=== PATIENT | female | born 1945 | race Caucasian/White ===

== ENCOUNTER 2016-04-05 20:40 | Emergency (ER) | payer MEDICARE, OTHER ==
[2016-04-05] MEDS ORDERED: IPRATROPIUM/ALBUTEROL 3 ML NEB INH STA (21:36)
[2016-04-05] MEDS ORDERED: DEXAMETHASONE 10 MG/ML VIAL PO STA (21:36)
[2016-04-05] MEDS ORDERED: cefTRIAXone 1 GM VIAL IM STA (21:36)
[2016-04-05] MEDS ORDERED: CHERRY SYRUP 10 ML UDC PO ONE (21:41)
[2016-04-05] MEDS ORDERED: cefTRIAXone 1 GM VIAL ONE (21:41)
[2016-04-05] MEDS ORDERED: DEXAMETHASONE 10 MG/ML VIAL ONE (21:41)
[2016-04-05] MEDS ORDERED: LIDOCAINE 2% 10 ML MDV ONE (21:42)
[2016-04-05] MEDS ORDERED: IPRATROPIUM/ALBUTEROL 3 ML NEB INH ONE (21:43)
[2016-04-05] MEDS ORDERED: ALBUTEROL 8 GM INHALER INH STA (23:51)
[2016-04-05] MEDS ORDERED: ALBUTEROL 8 GM INHALER INH ONE (23:52)
== END 2016-04-06 00:35 | disposition home or self-care (01) ==
DX: J01.90 Acute sinusitis, unspecified (principal); J45.909 Unspecified asthma, uncomplicated; I10 Essential (primary) hypertension; E11.9 Type 2 diabetes mellitus without complications; Z79.84 Long term (current) use of oral hypoglycemic drugs; Z79.82 Long term (current) use of aspirin
CPT/HCPCS: 71020; 87275; 87276; 94640; 94664; 96372; 99282; 99284; A9270; J7620

== ENCOUNTER 2016-06-09 03:00 | Outpatient (CLI) | payer MEDICARE | END 2016-06-09 03:01 | disposition critical access hospital (66) | DX: M54.2 Cervicalgia (principal) | CPT/HCPCS: A0425; A0429 ==

== ENCOUNTER 2016-06-09 03:19 | Emergency (ER) | payer MEDICARE ==
[2016-06-09] MEDS ORDERED: SODIUM CHLORIDE 0.9% 1,000 ML IV ONE (03:32)
[2016-06-09] MEDS ORDERED: diazePAM INJ 5 MG/ML SYRINGE IVP STA (04:05)
[2016-06-09] MEDS ORDERED: KETOROLAC 60 MG/2 ML VIAL IVP STA (04:05)
[2016-06-09] MEDS ORDERED: KETOROLAC 30 MG/ML VIAL ONE (04:08)
[2016-06-09] MEDS ORDERED: diazePAM INJ 5 MG/ML SYRINGE ONE (04:08)
== END 2016-06-09 04:56 | disposition home or self-care (01) ==
DX: M62.838 Other muscle spasm (principal); I10 Essential (primary) hypertension; E11.9 Type 2 diabetes mellitus without complications; Z79.84 Long term (current) use of oral hypoglycemic drugs

== ENCOUNTER 2022-05-26 12:55 | Emergency (ER) | payer MEDICARE ==
[2022-05-26 14:11] LABS: BASOPHILS % (AUTO) 0.5 %; EOSINOPHILS % (AUTO) 0.6 %; HCT - HEMATOCRIT 30.5 % (37.0-47.0); LYMPHOCYTES % (AUTO) 3.8 %; MEAN CORPUSCULAR HEMOGLOBIN 30.9 pg (27.0-31.0); MEAN CORPUSCULAR HGB CONC 32.8 g/dL (32.0-36.0); MEAN CORPUSCULAR VOLUME 94.1 fL (81.0-99.0); MONOCYTES % (AUTO) 8.7 %; NEUTROPHILS % (AUTO) 74.9 %; PLT - PLATELET COUNT 176 10^3/uL (130-450); RED BLOOD COUNT 3.24 10^6/uL (4.20-5.40); RED CELL DISTRIBUTION WIDTH 14.4 % (12.0-15.0); WHITE BLOOD COUNT 14.5 x10^3/uL (4.8-10.8)
[2022-05-26 14:17] LABS: ABNORMAL LYMPHS % (MANUAL) 0 %
[2022-05-26] MEDS ORDERED: ACETAMINOPHEN 500 MG TABLET PO STA (14:19)
[2022-05-26] MEDS ORDERED: SODIUM CHLORIDE 0.9% 1,000 ML IV STA (14:19)
--- NOTE | 2022-05-26 14:20 | ED Physician Documentation ---
History of Present Illness - Stated complaint Stated Complaint: CHILLS/FEVER - Chief complaint Chief Complaint: General - History obtained from History obtained from: Patient - Additonal information Additional information: 76-year-old woman with recent diagnosis of pancreatic cancer about 2 months ago. She is on FOLFIRINOX from the [facility], last infusion about 2-1/2 weeks ago. Her infusion last week was delayed because of neutropenia. Last night she developed shaking chills and some wheezing and today she noted a fever of 100.2 at home. She has mild cough. Some sinus pain. No abdominal pain. PD PAST MEDICAL HISTORY - Past Medical History Cardiovascular: Hypertension Respiratory: Asthma Endocrine/Autoimmune: Type 2 diabetes - Past Surgical History Past Surgical History: Yes HEENT: Tonsil/Adenoidectomy - Present Medications Home Medications: Ambulatory Orders Medication Instructions Recorded Confirmed Lovastatin [Altoprev] 40 mg PO DAILY 01/08/14 06/09/16 Metformin HCl 1,000 mg PO BID 01/08/14 06/09/16 lisinopriL [Lisinopril] 10 mg PO DAILY 01/08/14 06/09/16 Albuterol Sulf [Ventolin Hfa 1 - 2 puffs INH Q4HR PRN #1 inhaler 04/05/16 06/09/16 Inhaler] Aspirin [Aspir-Low] 81 mg PO DAILY 04/05/16 06/09/16 Metoprolol Tartrate 12.5 mg PO BID 04/05/16 06/09/16 SITagliptin [Januvia] 100 mg PO DAILY 04/05/16 06/09/16 Hydrocodone/Acetaminophen 1 - 2 each PO Q6H PRN #10 tablet 06/09/16 [Hydrocodon-Acetaminophen 5-325] diazePAM [Valium] 5 - 10 mg PO TID PRN #15 tablet 06/09/16 - Allergies Allergies/Adverse Reactions: Allergies Allergy/AdvReac Type Severity Reaction Status Date / Time No Known Drug Allergies Allergy Verified 06/09/16 03:52 - Social History Does the pt smoke?: No Smoking Status: Never smoker Does the pt drink ETOH?: Yes Does the pt have substance abuse?: No PD ED PE NORMAL - Vitals Vital signs reviewed: Yes (Febrile and tachycardic) - General General: Alert and oriented X 3, No acute distress - HEENT HEENT: PERRL, EOMI - Neck Neck: Supple, no meningeal sign, No bony TTP - Cardiac Cardiac: RRR, No murmur - Respiratory Respiratory: No respiratory distress, Clear bilaterally, Other (PowerPort right upper chest wall without signs of infection) - Abdomen Abdomen: Non tender - Derm Derm: No rash - Extremities Extremities: No edema, No calf tenderness / cord - Neuro Neuro: Alert and oriented X 3, Normal speech Results - Vitals Vitals: Vital Signs - 24 hr 05/26/22 05/26/22 13:20 15:22 Temperature 39.4 C H 38.3 C H Heart Rate 117 H 101 H Respiratory 14 30 H Rate Blood Pressure 148/74 H 114/60 O2 Saturation 98 98 Oxygen O2 Source Room air - EKG (time done) 1435 EKG releavant findings:: EKG personally interpreted by author of this note. Relevant findings are: Rate: Rate (enter#) (104) Rhythm: Sinus tachycardia [place]: Normal Intervals: Normal [place] QRS: Normal Ischemia: Normal ST segments - Labs Labs: Laboratory Tests 05/26/22 05/26/22 05/26/22 13:57 13:57 13:57 WBC 14.5 H RBC 3.24 L Hgb 10.0 L Hct 30.5 L MCV 94.1 MCH 30.9 MCHC 32.8 RDW 14.4 Plt Count 176 MPV 10.0 Neut # (Auto) Not Reportable Lymph # (Auto) Not Reportable [place] # (Auto) Not Reportable Eos # (Auto) Not Reportable Baso # (Auto) Not Reportable Absolute Nucleated RBC Not Reportable Total Counted 100 Band Neuts % (Manual) 17 H Reactive Lymphs % (Man) 1 Abnorm Lymph % (Manual) 0 Myelocytes % 2 H Nucleated RBC % Not Reportable Neutrophils # (Manual) 12.0 H Lymphocytes # (Manual) 0.3 L Monocytes # (Manual) 1.7 H Eosinophils # (Manual) 0.1 Basophils # (Manual) 0.0 Differential Comment MANUAL DIFFERENTIAL RBC Morph Micro Appear 2+ ANISOCYTOSIS Sodium 132 L Potassium 3.8 Chloride 99 L Carbon Dioxide 24 Anion Gap 9.0 BUN 17 Creatinine 1.1 H Estimated GFR (MDRD) 49 L Glucose 228 H Lactic Acid 2.1 Calcium 8.8 Total Bilirubin 0.4 AST 74 H ALT 79 H Alkaline Phosphatase 103 Total Protein 6.4 L Albumin 3.1 L Globulin 3.3 Albumin/Globulin Ratio 0.9 L Urine Color Urine Clarity Urine pH Ur Specific [place] Urine Protein Urine Glucose (UA) Urine Ketones Urine Occult Blood Urine Nitrite Urine Bilirubin Urine Urobilinogen Ur Leukocyte Esterase Urine RBC Urine WBC Ur Squamous Epith Cells Amorphous Sediment Urine Bacteria Urine Casts Urine Culture Comments Nasal Adenovirus (PCR) Nasal B. parapertussis DNA (PCR) Nasal Coronavir 229E PCR Nasal Coronavir HKU1 PCR Nasal Coronavir NL63 PCR Nasal Coronavir OC43 PCR Nasal Enterovir/Rhinovir PCR Nasal Influenza B PCR Nasal Influenza A PCR Nasal Parainfluen 1 PCR Nasal Parainfluen 2 PCR Nasal Parainfluen 3 PCR Nasal Parainfluen 4 PCR Nasal RSV (PCR) Nasal B.pertussis DNA PCR Nasal C.pneumoniae (PCR) [place] Human Metapneumo PCR Nasal M.pneumoniae (PCR) Nasal SARS-CoV-2 (PCR) 05/26/22 05/26/22 14:35 16:26 WBC RBC Hgb Hct MCV MCH MCHC RDW Plt Count MPV Neut # (Auto) Lymph # (Auto) [place] # (Auto) Eos # (Auto) Baso # (Auto) Absolute Nucleated RBC Total Counted Band Neuts % (Manual) Reactive Lymphs % (Man) Abnorm Lymph % (Manual) Myelocytes % Nucleated RBC % Neutrophils # (Manual) Lymphocytes # (Manual) Monocytes # (Manual) Eosinophils # (Manual) Basophils # (Manual) Differential Comment RBC Morph Micro Appear Sodium Potassium Chloride Carbon Dioxide Anion Gap BUN Creatinine Estimated GFR (MDRD) Glucose Lactic Acid Calcium Total Bilirubin AST ALT Alkaline Phosphatase Total Protein Albumin Globulin Albumin/Globulin Ratio Urine Color YELLOW Urine Clarity HAZY Urine pH 5.5 Ur Specific [place] 1.025 Urine Protein 30 H Urine Glucose (UA) 250 H Urine Ketones TRACE Urine Occult Blood TRACE-INTA Urine Nitrite NEGATIVE Urine Bilirubin NEGATIVE Urine Urobilinogen 0.2 (NORMAL) Ur Leukocyte Esterase NEGATIVE Urine RBC 0-5 Urine WBC 0-3 Ur Squamous Epith Cells FEW Squamous Amorphous Sediment Few Urine Bacteria Few Urine Casts 0-2 Fine Granular Urine Culture Comments NOT INDICATED Nasal Adenovirus (PCR) NOT DETECTED Nasal B. parapertussis DNA (PCR) NOT DETECTED Nasal Coronavir 229E PCR NOT DETECTED Nasal Coronavir HKU1 PCR NOT DETECTED Nasal Coronavir NL63 PCR NOT DETECTED Nasal Coronavir OC43 PCR NOT DETECTED Nasal Enterovir/Rhinovir PCR NOT DETECTED Nasal Influenza B PCR NOT DETECTED Nasal Influenza A PCR NOT DETECTED Nasal Parainfluen 1 PCR NOT DETECTED Nasal Parainfluen 2 PCR NOT DETECTED Nasal Parainfluen 3 PCR NOT DETECTED Nasal Parainfluen 4 PCR NOT DETECTED Nasal RSV (PCR) NOT DETECTED Nasal B.pertussis DNA PCR NOT DETECTED Nasal C.pneumoniae (PCR) NOT DETECTED [place] Human Metapneumo PCR NOT DETECTED Nasal M.pneumoniae (PCR) NOT DETECTED Nasal SARS-CoV-2 (PCR) NOT DETECTED - Rads (name of study) Single view chest x-ray demonstrates small left pleural effusion without consolidation. Relevant Findings:: Final report received, EMP independent interpretation of test PD Medical Decision Making - ED course ED course: This is a 76-year-old woman undergoing chemotherapy with FOLFIRINOX for pancreatic cancer who presents with shaking chills and a fever up to 39.3 here. Her neutropenia has recovered with a white count of 14,000, and a 17% bandemia. Her chemistry panel is for the most part unremarkable save mild hyponatremia and glucose at 228. [employer] respiratory panel was negative. I was able discuss her case by phone with Dr. Montejo, her oncologist at the [facility]. She felt that the elevated white count was likely due to bone marrow stimulant injections given in the clinic and she is reassured by her labs and does not feel like she needs to be admitted or be on prophylactic antibiotics. She wanted to make sure we got a urine which is pending at this time of dictation. Departure - Departure Disposition: 01 Home, Self Care Clinical Impression: Fever, On antineoplastic chemotherapy Condition: Good Record reviewed to determine appropriate education?: Yes Instructions: ED Fever Unconf Cause Comments: As discussed, Dr. Montejo was very happy with your labs. She does not feel like you need to be hospitalized. We are blood cultures, if they come back positive we will call you and request that you immediately return to the emergency department for admission. Return anytime if worsening or if new symptoms develop.
--- NOTE | 2022-05-26 14:24 | XRAY Report ---
PROCEDURE: Chest 1 View X-Ray INDICATIONS: Sepsis TECHNIQUE: One view of the chest was acquired. COMPARISON: None. FINDINGS: Surgical changes and devices: Right chest wall port tip projects over the low SVC. Lungs and pleura: Small left effusion. Mediastinum: Mediastinal contours appear normal. Heart size is normal. Bones and chest wall: No suspicious bony lesions. Overlying soft tissues appear unremarkable. IMPRESSION: Small left effusion, without consolidation. Reviewed by: Grupo Vinson on 05/26/2022 2:23 PM PDT Approved by: Grupo Vinson on 05/26/2022 2:23 PM PDT Station ID: [id number]
[2022-05-26 14:28] LABS: BAND NEUTROPHILS % (MANUAL) 17 %; EOSINOPHILS # (MANUAL) 0.1 10^3/uL (0-0.7); LACTIC ACID, VENOUS 2.1 mmol/L (0.5-2.2); LYMPHOCYTES # (MANUAL) 0.3 10^3/uL (1.5-3.5); LYMPHOCYTES % (MANUAL) 1 %; MONOCYTES # (MANUAL) 1.7 10^3/uL (0.0-1.0); MYELOCYTES % (MANUAL) 2 %; REACTIVE LYMPHS % (MANUAL) 1 %
[2022-05-26 14:29] LABS: DIFFERENTIAL COMMENT MANUAL DIFFERENTIAL; RBC MORPHOLOGY (MULTIPLE) 2+ ANISOCYTOSIS (NORMAL)
[2022-05-26 14:30] LABS: ALBUMIN 3.1 g/dL (3.2-5.5); ALBUMIN/GLOBULIN RATIO 0.9 (1.0-2.2); BILIRUBIN,TOTAL 0.4 mg/dL (0.2-1.0); CALCIUM 8.8 mg/dL (8.5-10.3); CREATININE 1.1 mg/dL (0.4-1.0); POTASSIUM 3.8 mmol/L (3.5-5.0); TOTAL PROTEIN 6.4 g/dL (6.7-8.2)
[2022-05-26] MEDS ORDERED: VANCOMYCIN INJ 1.5 GM in SODIUM CHLORIDE 0.9% 500 ML IV STA (14:31)
[2022-05-26] MEDS ORDERED: CEFEPIME 2 GM in SODIUM CHLORIDE 0.9% MINIBAG 100 ML IV STA (14:31)
[2022-05-26 15:38] LABS: B. PARAPERTUSSIS- RESP PCR PAN NOT DETECTED; B. PERTUSSIS- RESP PCR PANEL NOT DETECTED; C. PNEUMONIAE- RESP PCR PANEL NOT DETECTED; CORONAVIRUS 229E-RESP PCR NOT DETECTED; CORONAVIRUS HKU1-RESP PCR NOT DETECTED; CORONAVIRUS NL63-RESP PCR NOT DETECTED; CORONAVIRUS OC43-RESP PCR NOT DETECTED; HUMAN METAPNEUMOVIRUS NOT DETECTED; INFLUENZA A- RESP PCR PANEL NOT DETECTED; INFLUENZA B - RESP PCR PANEL NOT DETECTED; M. PNEUMONIAE- RESP PCR PANEL NOT DETECTED; PARAINFLUENZA VIRUS 1 NOT DETECTED; PARAINFLUENZA VIRUS 2 NOT DETECTED; PARAINFLUENZA VIRUS 3 NOT DETECTED; PARAINFLUENZA VIRUS 4 NOT DETECTED; RHINOVIRUS/ENTEROVIRUS NOT DETECTED; RSV- RESP PCR PANEL NOT DETECTED; SARS-CoV-2 -RESP PCR PANEL NOT DETECTED
[2022-05-26 16:33] LABS: BILIRUBIN,URINE NEGATIVE (NEGATIVE); GLUCOSE, URINE (UA) 250 mg/dL (NEGATIVE); KETONES,URINE (UA) TRACE mg/dL (NEGATIVE); LEUKOCYTE ESTERASE, URINE NEGATIVE (NEGATIVE); NITRITE,URINE NEGATIVE (NEGATIVE); OCCULT BLOOD,URINE TRACE-INTA (NEGATIVE); PH,URINE 5.5 PH (5.0-7.5); PROTEIN,URINE 30 mg/dL (NEGATIVE); UROBILINOGEN,URINE 0.2 (NORMAL) E.U./dL (NORMAL)
[2022-05-26 16:34] LABS: CLARITY,URINE HAZY (CLEAR)
[2022-05-26 16:41] LABS: AMORPHOUS SEDIMENT,UR Few /LPF; BACTERIA,URINE Few /HPF (None Seen); CASTS, URINE 0-2 Fine Granular /LPF; RBC,URINE 0-5 /HPF (0-5); SQUAMOUS EPITHELIAL CELL,UR FEW Squamous (<= Few); WBC,URINE 0-3 /HPF (0-5)
[2022-05-26 16:48] VITALS: BP 110/57
[2022-05-27] MEDS ORDERED: oxyCODONE 5 MG TABLET PO PRN (12:07)
[2022-05-27] MEDS ORDERED: ONDANSETRON ODT 4 MG TABLET TL PRN (12:07)
[2022-05-27] MEDS ORDERED: ONDANSETRON 4 MG/2 ML VIAL IVP PRN (12:07)
[2022-05-27] MEDS ORDERED: ACETAMINOPHEN 325 MG TABLET PO PRN (12:07)
[2022-05-27] MEDS ORDERED: SODIUM CHLORIDE FLUSH 0.9% 10 ML SYRINGE IVP PRN (12:07)
[2022-05-27] MEDS ORDERED: SODIUM CHLORIDE 0.9% 1,000 ML IV SCH (13:00)
[2022-05-27] MEDS ORDERED: ENOXAPARIN 40 MG/0.4 ML SYRINGE SUBQ SCH (13:00)
[2022-05-27] MEDS ORDERED: SODIUM CHLORIDE FLUSH 0.9% 10 ML SYRINGE IVP SCH (17:00)
== END 2022-05-26 17:05 | disposition home or self-care (01) ==
LOC: ED 12:55
DX: R50.9 Fever, unspecified (principal); C25.9 Malignant neoplasm of pancreas, unspecified; I10 Essential (primary) hypertension; Z20.822 Contact with and (suspected) exposure to COVID-19; E11.9 Type 2 diabetes mellitus without complications; Z79.84 Long term (current) use of oral hypoglycemic drugs; Z79.899 Other long term (current) drug therapy; Z79.82 Long term (current) use of aspirin
CPT/HCPCS: 36415; 71045; 80053; 81001; 83605; 85025; 87040; 87077; 87150; 87181; 87633; 93005; 96361; 96365; 99284; A9270; J3370; 87086

== ENCOUNTER 2022-05-27 01:07 | Inpatient (IN) | payer MEDICARE ==
[2022-05-27] MEDS ORDERED: VANCOMYCIN INJ 1.25 GM in SODIUM CHLORIDE 0.9% 250 ML IV STA (01:30)
[2022-05-27] MEDS ORDERED: SODIUM CHLORIDE 0.9% IV STA (01:30)
[2022-05-27] MEDS ORDERED: CEFEPIME 2 GM in SODIUM CHLORIDE 0.9% MINIBAG 100 ML IV STA (01:30)
[2022-05-27] MEDS ORDERED: ACETAMINOPHEN 325 MG TABLET PO STA ×2 (01:32→11:23)
[2022-05-27] MEDS ORDERED: LORazepam 1 MG TABLET PO STA (01:34)
--- NOTE | 2022-05-27 01:35 | ED Physician Documentation ---
History of Present Illness - Stated complaint Stated Complaint: NEEDS MEDICINE-FEVER - Chief complaint Chief Complaint: Fever - History obtained from History obtained from: Patient - Additonal information Additional information: 76-year-old woman with history of pancreatic cancer, diabetes, high blood pressure, presents for follow-up after having blood work drawn yesterday. She grew out Klebsiella from her blood cultures and is now presenting for admission.Patient has had cough, sinus pain, and fever and had a left pleural effusion on chest x-ray yesterday concerning for possible pneumonia. Review of Systems Constitutional: reports: Fever Cardiac: denies: Chest pain / pressure Respiratory: reports: Dyspnea, Cough PD PAST MEDICAL HISTORY - Past Medical History Cardiovascular: Hypertension Respiratory: Asthma Endocrine/Autoimmune: Type 2 diabetes - Past Surgical History Past Surgical History: Yes HEENT: Tonsil/Adenoidectomy - Present Medications Home Medications: Ambulatory Orders Medication Instructions Recorded Confirmed Metformin HCl 1,000 mg PO BID 01/08/14 06/09/16 lisinopriL [Lisinopril] 10 mg PO DAILY 01/08/14 06/09/16 Metoprolol Tartrate 12.5 mg PO BID 04/05/16 06/09/16 diazePAM [Valium] 5 - 10 mg PO TID PRN #15 tablet 06/09/16 Dicyclomine [Bentyl] 10 mg PO QID 05/27/22 05/27/22 Famotidine [Pepcid] 20 mg PO BID 05/27/22 05/27/22 Insulin Glargine [Lantus Solostar] 20 unit SUBQ HS 05/27/22 05/27/22 Insulin Lispro [Humalog] 2 units SUBQ BID 05/27/22 05/27/22 - Allergies Allergies/Adverse Reactions: Allergies Allergy/AdvReac Type Severity Reaction Status Date / Time No Known Drug Allergies Allergy Verified 05/27/22 01:16 - Social History Does the pt smoke?: No Smoking Status: Never smoker Does the pt drink ETOH?: Yes Does the pt have substance abuse?: No PD ED PE NORMAL - Vitals Vital signs reviewed: Yes - General General: Alert and oriented X 3, No acute distress, Well developed/nourished - HEENT HEENT: Atraumatic, PERRL, EOMI - Neck Neck: Supple, no meningeal sign - Cardiac Cardiac: RRR - Respiratory Respiratory: No respiratory distress, Other (Decreased breath sounds left lung base) - Abdomen Abdomen: Non tender, Non distended Results - Vitals Vitals: Vital Signs - 24 hr 05/27/22 05/27/22 05/27/22 01:20 01:30 02:00 Temperature 38.2 C H Heart Rate 96 93 89 Respiratory 18 25 H 27 H Rate Blood Pressure 113/57 L 107/57 L 103/49 L O2 Saturation 100 98 98 05/27/22 05/27/22 05/27/22 02:30 03:00 03:30 Temperature 36.8 C Heart Rate 87 86 77 Respiratory 24 Rate Blood Pressure 98/59 L 103/57 L 95/49 L O2 Saturation 97 99 96 05/27/22 05/27/22 05/27/22 04:00 04:30 05:00 Temperature Heart Rate 77 73 73 Respiratory 22 20 22 Rate Blood Pressure 96/49 L 100/57 L 109/76 O2 Saturation 94 95 100 Oxygen O2 Source Room air - EKG (time done) 0149 EKG releavant findings:: EKG personally interpreted by author of this note. Relevant findings are: Rate: Rate (enter#) (90) Rhythm: NSR [place]: Normal Intervals: Normal IN QRS: Normal Ischemia: Normal ST segments - Labs Labs: Laboratory Tests 05/27/22 05/27/22 05/27/22 02:16 02:16 02:16 WBC 17.3 H RBC 2.85 L Hgb 8.9 L Hct 27.1 L MCV 95.1 MCH 31.2 H MCHC 32.8 RDW 14.3 Plt Count 147 MPV 9.9 Neut # (Auto) Not Reportable Lymph # (Auto) Not Reportable [place] # (Auto) Not Reportable Eos # (Auto) Not Reportable Baso # (Auto) Not Reportable Absolute Nucleated RBC Not Reportable Total Counted 100 Band Neuts % (Manual) 4 Abnorm Lymph % (Manual) 0 Metamyelocytes % 1 H Myelocytes % 1 H Nucleated RBC % Not Reportable Neutrophils # (Manual) 15.4 H Lymphocytes # (Manual) 0.9 L Monocytes # (Manual) 0.5 Eosinophils # (Manual) 0.0 Basophils # (Manual) 0.2 H Differential Comment MANUAL DIFFERENTIAL WBC Morphology NORMAL APPEARANCE Platelet Estimate NORMAL (130-450,000) Platelet Morphology NORMAL APPEARANCE RBC Morph Micro Appear 1+ POLYCHROMASIA Sodium 128 L Potassium 3.6 Chloride 96 L Carbon Dioxide 20 L Anion Gap 12.0 BUN 19 Creatinine 1.3 H Estimated GFR (MDRD) 40 L Glucose 247 H Lactic Acid 3.5 H* Calcium 7.8 L Total Bilirubin 0.4 AST 76 H ALT 79 H Alkaline Phosphatase 88 Total Protein 5.3 L Albumin 2.6 L Globulin 2.7 Albumin/Globulin Ratio 1.0 PD Medical Decision Making - ED course ED course: 76-year-old woman presented with bacteremia on blood cultures drawn yesterday likely pneumonia as primary source of infection versus port line infection, which is less likely given clean appearance of line and patient is symptomatic for pneumonia (cough, soa). Because she has been in the healthcare setting related to her pancreatic cancer I am treating with broad-spectrum antibiotics for healthcare associated pneumonia. Sepsis protocol enacted. Plan to admit pending bed availability in the morning. Patient will be endorsed to incoming daytime EDMD at 7 AM shift change pending bed opening up. Departure - Departure Disposition: 66 [facility] DC/Xfer Clinical Impression: Pneumonia, Bacteremia, Sepsis Condition: Stable
[2022-05-27] MEDS ORDERED: VANCOMYCIN INJ 1.5 GM in SODIUM CHLORIDE 0.9% 500 ML IV STA (02:25)
[2022-05-27 02:26] LABS: BASOPHILS % (AUTO) 0.4 %; EOSINOPHILS % (AUTO) 0.1 %; HCT - HEMATOCRIT 27.1 % (37.0-47.0); HGB - HEMOGLOBIN 8.9 g/dL (12.0-16.0); LYMPHOCYTES % (AUTO) 3.4 %; MEAN CORPUSCULAR HEMOGLOBIN 31.2 pg (27.0-31.0); MEAN CORPUSCULAR HGB CONC 32.8 g/dL (32.0-36.0); MEAN CORPUSCULAR VOLUME 95.1 fL (81.0-99.0); MEAN PLATELET VOLUME 9.9 fL (7.9-10.8); MONOCYTES % (AUTO) 8.3 %; NEUTROPHILS % (AUTO) 81.5 %; PLT - PLATELET COUNT 147 10^3/uL (130-450); RED BLOOD COUNT 2.85 10^6/uL (4.20-5.40); RED CELL DISTRIBUTION WIDTH 14.3 % (12.0-15.0); WHITE BLOOD COUNT 17.3 x10^3/uL (4.8-10.8)
--- NOTE | 2022-05-27 02:29 | XRAY Report ---
PROCEDURE: Chest 1 View X-Ray INDICATIONS: Sepsis TECHNIQUE: One view of the chest was acquired. COMPARISON: Prior study from .. FINDINGS: Surgical changes and devices: There is a right internal jugular Port-A-Cath redemonstrated with the tip in the superior vena cava. A right chest wall Port-A-Cath is redemonstrated with tip projecting [place] the superior vena cava. Lungs and pleura: No pleural effusions or pneumothorax. Lungs are clear. Mediastinum: Mediastinal contours appear normal. Heart size is normal. Bones and chest wall: No suspicious bony lesions. Overlying soft tissues appear unremarkable. IMPRESSION: 1. No acute cardiopulmonary disease. Reviewed by: Hunter Rausch MD on 05/27/2022 2:28 AM PDT Approved by: Hunter Rausch MD on 05/27/2022 2:28 AM PDT Station ID: [id number]
[2022-05-27 02:31] LABS: ABNORMAL LYMPHS % (MANUAL) 0 %
[2022-05-27 02:43] LABS: BAND NEUTROPHILS % (MANUAL) 4 %; BASOPHILS # (MANUAL) 0.2 10^3/uL (0-0.1); BASOPHILS % (MANUAL) 1 %; LYMPHOCYTES # (MANUAL) 0.9 10^3/uL (1.5-3.5); LYMPHOCYTES % (MANUAL) 5 %; METAMYELOCYTES % (MANUAL) 1 %; MONOCYTES # (MANUAL) 0.5 10^3/uL (0.0-1.0); MYELOCYTES % (MANUAL) 1 %; NEUTROPHILS # (MANUAL) 15.4 10^3/uL (1.5-6.6)
[2022-05-27 02:44] LABS: DIFFERENTIAL COMMENT MANUAL DIFFERENTIAL; PLATELET ESTIMATE, MANUAL NORMAL (130-450,000) (NORMAL); PLATELET MORPHOLOGY NORMAL APPEARANCE (NORMAL); RBC MORPHOLOGY (MULTIPLE) 1+ POLYCHROMASIA (NORMAL); WBC MORPHOLOGY (MULTIPLE) NORMAL APPEARANCE (NORMAL)
[2022-05-27 02:50] LABS: LACTIC ACID, VENOUS 3.5 mmol/L (0.5-2.2)
[2022-05-27 02:59] LABS: ALBUMIN 2.6 g/dL (3.2-5.5); BILIRUBIN,TOTAL 0.4 mg/dL (0.2-1.0); CALCIUM 7.8 mg/dL (8.5-10.3); CREATININE 1.3 mg/dL (0.4-1.0); POTASSIUM 3.6 mmol/L (3.5-5.0); TOTAL PROTEIN 5.3 g/dL (6.7-8.2)
[2022-05-27 05:16] LABS: BILIRUBIN,URINE NEGATIVE (NEGATIVE); GLUCOSE, URINE (UA) 100 mg/dL (NEGATIVE); KETONES,URINE (UA) NEGATIVE (NEGATIVE); LEUKOCYTE ESTERASE, URINE SMALL (NEGATIVE); NITRITE,URINE NEGATIVE (NEGATIVE); OCCULT BLOOD,URINE TRACE-INTA (NEGATIVE); PROTEIN,URINE NEGATIVE (NEGATIVE); UROBILINOGEN,URINE 0.2 (NORMAL) E.U./dL (NORMAL)
[2022-05-27 05:27] LABS: BACTERIA,URINE Rare /HPF (None Seen); CLARITY,URINE CLEAR (CLEAR); RBC,URINE 0-5 /HPF (0-5); SQUAMOUS EPITHELIAL CELL,UR FEW Squamous (<= Few); WBC,URINE 0-3 /HPF (0-5)
[2022-05-27] MEDS: SODIUM CHLORIDE 0.9% 1,000 ML IV STA ×2 (06:55→14:13)
[2022-05-27] MEDS ORDERED: SODIUM CHLORIDE FLUSH 0.9% 10 ML SYRINGE IVP PRN (12:32)
[2022-05-27] MEDS ORDERED: oxyCODONE 5 MG TABLET PO PRN (12:46)
[2022-05-27] MEDS ORDERED: ONDANSETRON 4 MG/2 ML VIAL IVP PRN (12:46)
[2022-05-27] MEDS ORDERED: ACETAMINOPHEN 325 MG TABLET PO PRN (12:46)
[2022-05-27] MEDS ORDERED: ONDANSETRON ODT 4 MG TABLET TL PRN (12:46)
--- NOTE | 2022-05-27 14:07 | PHARMACY PROGRESS NOTE ---
- Best Possible Medication History Admit Date and Time: 05/27/22 1232 Processed by: Pharmacy Medication History completed: Yes Patient Interview: Completed Secondary Source(s): Written medication list, Pharmacy records As the person ultimately responsible for medication therapy, providers are able to order a medication from an existing home medication list in [facility] via the "Reconcile Routine" prior to Confirmation of that medication by sales support advisor. Such practice is discouraged except when the physician, in their clinical judgment, deems that a medical need exists for a medication without regard to previous use.
[2022-05-27] MEDS: SODIUM CHLORIDE 0.9% 1,000 ML IV SCH ×2 (15:02→23:40)
[2022-05-27] MEDS: DICYCLOMINE 10 MG CAPSULE PO SCH ×2 (17:41→21:54)
[2022-05-27] MEDS: SODIUM CHLORIDE FLUSH 0.9% 10 ML SYRINGE IVP SCH ×2 (17:43→23:42)
[2022-05-27] MEDS: PROTEASE PO SCH ×2 (18:13→21:54)
[2022-05-27] MEDS: LIPASE PO SCH ×2 (18:13→21:54)
[2022-05-27] MEDS: AMYLASE PO SCH ×2 (18:13→21:54)
--- NOTE | 2022-05-27 20:04 | HISTORY & PHYSICAL EXAMINATION ---
History and Physical - History and Physical May 27, 2022 7:41 PM Chief complaint: Asked to come back to the emergency room because of positive blood cultures History obtained from patient and Records reviewed: [facility] History of present illness: She is a 76-year-old female who was diagnosed with pancreatic cancer in February after experiencing uncontrolled diabetes for no reason, and stomach cramping and limb cramping. She is stage III. Her primary care provider is Kennedy Sheth MD and her Oncologist is Dr. Mariely Montejo. She has received 2 cycles of FOLFIRINOX and the 3rd cycle was delayed last week due to neutropenia. She said that she received Neulasta last month, and this last week she received a new drug but does not remember what it was. Because of the chemo she has had nausea, severe abdominal cramping. But the cramping is well taken care of by "my magic blue pill" of dicyclomine. Since February she has waxing and waning right ear and left ear eustachian tube dysfunction. Occasionally she feels tickling in a sore throat. She says that her sinuses get so swollen that her zygomatic arch will disappear. She had nasal surgery 40 years ago. She has a history of asthma and gets inhalers on a regular basis but has not used a single inhaler. Her diabetes has become uncontrolled. She used to take metformin, glipizide, Januvia. With the chemotherapy she has been taken off glipizide and Januvia and is now on Lantus 20 units at night, 2 units before breakfast of short acting, and 2 units of short acting before lunch. She still takes her metformin. She denies any diarrhea with this. On the evening of May 25 she developed shaking chills, wheezing. She associates this with her asthma and she usually controls her wheezing by just "relaxing". But she was not getting any better, and she noted a fever of 100.2 on May 26 so she went to the emergency room. She has a cough productive of white phlegm but it is mild. No one else around her is sick. She was seen in the emergency room yesterday, and temperature was 39.4, heart rate 117. After treatment with Tylenol temperature was 38.3. White cell count was 14.5. Urinalysis was negative for infection. A single view chest x-ray demonstrated a small left pleural effusion without consolidation. The emergency room provider discussed the case with her oncologist. She felt that the white cell count was elevated due to bone marrow stimulant injections and did not feel like she needed to be admitted or put on prophylactic antibiotics. So the patient was sent home at 4:45 PM. Unfortunately blood cultures grew out Klebsiella and the patient was asked to return to the emergency room. This was at 1:30 in the morning. When she returned her temperature is 38.2. Blood pressure 107/57. Respirations 25 she is 98% on room air. With Tylenol and antibiotics temperature came down to 36.8. Complete review of systems has been done and other than the occasional eustachian tube dysfunction, and the new cough with wheezing, there is nothing else positive on review of systems. Patient is being placed on empiric antibiotic therapy and put in inpatient status. Past medical history: 1. Pancreatic Cancer, stage III 2. AVM of the lung with a stent put in place many years ago 3. [id number]. 4. GERD with hiatal hernia. For years she has had hiccups and burps that have gotten worse with her pancreatic cancer diagnosis 5. Peptic ulcer disease found on EGD done prior to chemotherapy. "Polyps were removed from my stomach" and she is H. pylori negative 6. History of colon polyps with "precancer" found 7. Asthma. Never intubated, not on long-term steroids, has never had to use an inhaler yet No known drug allergies Medications: Creon, dicyclomine, Emla cream, lispro 2 units before breakfast and lunch, Lantus 20 units at night, lisinopril 10 mg daily, metformin 500 mg p.o. twice daily, metoprolol tartrate 12.5 p.o. twice daily, Pepcid 20 mg p.o. twice daily, vitamin B12 sublingual, vitamin D p.o. daily Social history: Born in [place] then moved to [place]. From [place] to [place] where she lived in [facility] and [place]. When she met her , his family was up here in the [facility]. He did work doing geology evaluations of the [employer]. When family needed help, she moved up here in 2001 to help them and ended up living in their house when they . moved up to join her in 2006 when he retired. He had been living in [place] while she moved up here. She has no history of tobacco use at all. She has no history of alcohol abuse. They still live in their own home, are completely independent with activities of daily living. Family history: Mom at age 92 of complications of H. pylori ulcer disease with necrosis of the stomach and small bowel resection Dad at age 87 of complications of prostate cancer 1 sister is healthy and has had lumpectomy and radiation for breast cancer 2 children are alive and healthy Review of systems: 13 point review of systems done with pertinent positives in history of present illness Exam: She is an alert, oriented, childlike elderly female by affect whose is at the bedside as her advocate. Occasionally confused with timing and dates but alert and oriented to person place and time and has normal speech patterns, lucid sentences. Temperature 36.6, heart rate 86, blood pressure 117/49, respirations 24, 96% on room air 5 foot 6 inches tall, 70.5 kg Head and neck is unremarkable. Pupils equal round and reactive. Sclera white. No signs of dehydration with moist and pink oral mucosa without lesions. Back of throat is without lesions Supple neck, shotty adenopathy Respiratory: Clear to auscultation and percussion. She feels like she is "wheezy" but none evident. She does have an occasional bronchitic cough but it is only happened twice during my 45-minute conversation with her. No use of accessory muscles. Able to complete full sentences and have a normal conversation without cough or shortness of breath or use of accessory muscles Cardiac: Regular rate and rhythm no murmur Anterior chest wall has a port in place. No redness, fluctuance, skin is normal. Abdomen is soft, hypoactive bowel sounds, nontender. She was getting cramps about 30 minutes ago but the dicyclomine took it away. No masses palpable. Extremities without clubbing cyanosis or edema or skin breakdown Neurologically she is alert and oriented to person place and time, can follow two-step commands, no focal deficits, no tremors, able to sit up and transition from supine to sitting without assist Labs: Sodium 128, potassium 3.6, chloride 96, carbon dioxide 20, creatinine 1.3, glucose 247. Lactic acid was 3.5 and with IV fluids and hydration lactic acid is 1.6 Calcium 7.8, AST 76, ALT 79 White cell count 17.3, hemoglobin 8.9, hematocrit 27.1, platelets 147 differential has metamyelocytes, myelocytes and high neutrophils as well as high basophils Urine culture in progress Blood cultures in forearm, port access are positive for Klebsiella pneumonia from May 26 Assessment/plan: 1. Klebsiella pneumonia bacteremia. 1 culture is positive out of the port and blood cultures positive out of an antecubital fossa in the opposite arm. At this time there is no specific source identified by review of systems. She has a mild dry cough, no symptoms of UTI, and does have abdominal cramping but that is not new for her. Klebsiella is usually from urine or colon. Plan: Inpatient status Repeat blood cultures in 24 hours after treatment I will speak to oncology tomorrow to see if we need to remove the port since it has positive blood cultures I answered their question with regards to planning her chemo this week. I explained that it would most likely be delayed. Daily CBC 2. Type 2 diabetes mellitus, uncontrolled, on insulin, with hyperglycemia. Plan: I will continue her home regimen of Lantus 20 units at night, 2 units of short acting lispro before breakfast and lunch, and add sliding scale insulin. A1c in the morning 3. GERD with hiatal hernia/PUD and complaints of chronic dyspepsia, hiccups, and burping. Worse with this new diagnosis and with chemo. Plan: Continue famotidine 20 mg p.o. twice daily 4. Asthma. No current exacerbation. But the patient complains of "wheezing" with cough. Plan: Albuterol nebulizer 4 times daily as needed 5. Pancreatic cancer, Stage III. She is very concerned that her chemo will be delayed. She describes the tumor is wrapping around the common bile duct, and artery that she cannot name, and is afraid that delay in treatment will result in delay of surgery. I did explain that most likely that will occur. But I do not think it would be significant delay of more than 2 to 3 weeks. I explained to her that I will talk to her oncologist tomorrow and explore the answer to this question further. Patient is on Creon and that will be resumed while here. She is also on dicyclomine for abdominal cramping and that will be resumed while she is here. 6. DVT prophylaxis with Lovenox 40 mg subcu daily 7. Full CODE STATUS 8. Attestation the patient will be discharged within 96 hours
[2022-05-27] MEDS ORDERED: INSULIN GLARGINE-YFGN 300 UNIT/3 ML PEN SUBQ SCH (21:00)
[2022-05-27] MEDS: METOPROLOL TARTRATE 25 MG TABLET PO SCH (21:51)
[2022-05-27] MEDS: FAMOTIDINE 20 MG TABLET PO SCH (21:54)
[2022-05-27] MEDS: INSULIN LISPRO 300 UNIT/3 ML PEN SUBQ SCH (21:54)
[2022-05-28] MEDS: LIPASE PO SCH ×5 (08:29→21:11)
[2022-05-28] MEDS: PROTEASE PO SCH ×5 (08:29→21:11)
[2022-05-28] MEDS: AMYLASE PO SCH ×5 (08:29→21:11)
[2022-05-28] MEDS: CHOLECALCIFEROL 25 MCG TABLET PO SCH (08:29)
[2022-05-28] MEDS: lisinopriL 5 MG TABLET PO SCH (08:29)
[2022-05-28] MEDS: METOPROLOL TARTRATE 25 MG TABLET PO SCH ×2 (08:30→21:12)
[2022-05-28] MEDS: INSULIN LISPRO 300 UNIT/3 ML PEN SUBQ SCH ×4 (08:33→21:18)
[2022-05-28] MEDS: FAMOTIDINE 20 MG TABLET PO SCH ×2 (08:33→21:13)
[2022-05-28] MEDS: DICYCLOMINE 10 MG CAPSULE PO SCH ×4 (08:51→21:12)
[2022-05-28] MEDS: SODIUM CHLORIDE 0.9% 1,000 ML IV SCH ×2 (08:51→19:36)
[2022-05-28] MEDS: SODIUM CHLORIDE FLUSH 0.9% 10 ML SYRINGE IVP SCH ×2 (08:52→18:06)
[2022-05-28] MEDS: polyethylene glycoL 3350 17 GM PACKET PO SCH (11:41)
[2022-05-28 11:55] LABS: ESTIMATED AVERAGE GLUCOSE 217 mg/dL (70-100); HEMOGLOBIN A1c% 9.2 % (4.27-6.07)
[2022-05-28] MEDS ORDERED: CYANOCOBALAMIN 500 MCG TABLET PO SCH (15:15)
[2022-05-28] MEDS: cefTRIAXone 2 GM VIAL IVP SCH (16:50)
[2022-05-28] MEDS ORDERED: INSULIN GLARGINE-YFGN 300 UNIT/3 ML PEN SUBQ SCH (21:01)
--- NOTE | 2022-05-28 21:01 | PROVIDER PROGRESS NOTE ---
Progress Note May 29, 20192022 8:53 PM Patient says that she has been doing well today. She has eustachian tube dysfunction where her ears feel like they are full of fluid and they pop. She has an occasional postnasal drip from chronic allergies. This is given her a dry cough. But no increased cough, no shortness of breath, no wheezing. No abdominal pain. No urgency, frequency, dysuria. Exam: Temperature 36.6, heart rate 87, blood pressure 124/59, respirations 16, 99% on room air An elderly female who is sitting upright in her chair, comfortable, her sister and son at the bedside. They are asking when she can go home Neck is supple Lungs are clear with no increased respiratory effort Regular rate and rhythm without a murmur Abdomen is soft, nontender. She states that she is vaguely achy diffusely but she always gets that with chemotherapy. There is no distinct abdominal complaint. No diarrhea. No rebound or guarding. Extremities are without edema Neurologically alert, oriented to person place and time. Repeat blood cultures on May 27 are negative. A blood culture was done through the port today and those results are pending. Urine culture from May 27 is negative. Blood cultures from May 26 were done in port and antecubital fossa are positive. Those are still continuing to show Klebsiella pneumonia. I called the labeling strategist to see if there is any sensitivities available and he said is not ready yet. Too young sensitivities. Assessment/plan 1. Klebsiella pneumonia bacteremia. No source identified and that abdomen is negative, urinalysis is negative, and port appears clean without any fluctuance or redness. Source can still be the port. It is reassuring that repeat blood cultures are negative. I will wait to see what the cultures are through the port today. Plan: I left a message with her oncologist to please give me a call. As of this evening, no return phone call yet. Overall plan will be 2 weeks of antibiotics. They do not necessarily have to be intravenous. Once I get sensitivities I can decide if I can switch her to a quinolone which has excellent tissue penetration for gram-negative bacteremia. I will also see if culture through the port shows anything. If that is positive, she will need a new port. 2. Type 2 diabetes mellitus, uncontrolled, on insulin, with hyperglycemia. She is eating 50 to 75% of her food. Fasting glucose was 215 this morning. 288 before dinner. At home she takes lispro 2 units before breakfast and lunch. Lantus 20 units in the evening. I did resume the lantus but held of on lispro in case she wasn't eating and would have hypoglycemia. She is not hypoglycemic. I will increase Lantus to 22 units tonight, and give 2 units before breakfast and lunch 3. GERD with hiatal hernia, and complaints of dyspepsia hiccups and burping. She is on a proton pump inhibitor. Today she says that her stomach is not nearly as upset as it was yesterday. No change in medication. 4. Asthma. No current exacerbation. Currently using albuterol as needed with good control. 5. Pancreatic cancer, stage III. In leaving my message with her oncologist, I did update the medical billing service. So they know she is in the hospital will reschedule accordingly.
[2022-05-29] MEDS: SODIUM CHLORIDE FLUSH 0.9% 10 ML SYRINGE IVP SCH ×3 (01:00→15:52)
[2022-05-29] MEDS: SODIUM CHLORIDE 0.9% 1,000 ML IV SCH (05:48)
[2022-05-29 07:59] LABS: BASOPHILS # (AUTO) 0.1 10^3/uL (0.0-0.1); BASOPHILS % (AUTO) 0.7 %; EOSINOPHILS # (AUTO) 0.1 10^3/uL (0.0-0.7); EOSINOPHILS % (AUTO) 1.2 %; HCT - HEMATOCRIT 25.6 % (37.0-47.0); HGB - HEMOGLOBIN 8.3 g/dL (12.0-16.0); LYMPHOCYTES % (AUTO) 12.5 %; MEAN CORPUSCULAR HEMOGLOBIN 30.4 pg (27.0-31.0); MEAN CORPUSCULAR HGB CONC 32.4 g/dL (32.0-36.0); MEAN CORPUSCULAR VOLUME 93.8 fL (81.0-99.0); MEAN PLATELET VOLUME 11.1 fL (7.9-10.8); MONOCYTES % (AUTO) 11.8 %; NEUTROPHILS # (AUTO) 5.7 10^3/uL (1.5-6.6); NEUTROPHILS % (AUTO) 69.9 %; PLT - PLATELET COUNT 124 10^3/uL (130-450); RED BLOOD COUNT 2.73 10^6/uL (4.20-5.40); RED CELL DISTRIBUTION WIDTH 14.2 % (12.0-15.0); WHITE BLOOD COUNT 8.2 x10^3/uL (4.8-10.8)
[2022-05-29 08:04] LABS: CALCIUM 8.1 mg/dL (8.5-10.3); CREATININE 0.9 mg/dL (0.4-1.0); POTASSIUM 3.2 mmol/L (3.5-5.0)
[2022-05-29] MEDS: INSULIN LISPRO 300 UNIT/3 ML PEN SUBQ SCH ×7 (08:04→20:53)
[2022-05-29] MEDS: AMYLASE PO SCH ×5 (08:06→20:47)
[2022-05-29] MEDS: LIPASE PO SCH ×5 (08:06→20:47)
[2022-05-29] MEDS: PROTEASE PO SCH ×5 (08:06→20:47)
[2022-05-29] MEDS: polyethylene glycoL 3350 17 GM PACKET PO SCH (10:14)
[2022-05-29] MEDS: cefTRIAXone 2 GM VIAL IVP SCH (10:15)
[2022-05-29] MEDS: FAMOTIDINE 20 MG TABLET PO SCH ×2 (10:23→20:47)
[2022-05-29] MEDS: CHOLECALCIFEROL 25 MCG TABLET PO SCH (10:24)
[2022-05-29] MEDS: lisinopriL 5 MG TABLET PO SCH (10:24)
[2022-05-29] MEDS: METOPROLOL TARTRATE 25 MG TABLET PO SCH ×2 (10:25→20:48)
[2022-05-29] MEDS: DICYCLOMINE 10 MG CAPSULE PO SCH ×4 (10:30→20:47)
[2022-05-29] MEDS: POTASSIUM CHLORIDE 20 MEQ/15 ML UDC PO SCH (12:03)
[2022-05-29] MEDS: CIPROFLOXACIN 250 MG TABLET PO SCH ×2 (12:03→20:47)
[2022-05-29] MEDS ORDERED: SODIUM CHLORIDE 0.9% 500 ML IV PRN (15:46)
--- NOTE | 2022-05-29 17:21 | PROVIDER PROGRESS NOTE ---
Progress Note May 29, 2022 5 PM She is very comfortable. Sitting upright. Smiling. No fevers, chills, rigors. I had de-escalated antibiotics and changed to Rocephin for the Klebsiella. There has been no change in her vitals with that. She denies chest pain, but is still worried because she has chest congestion and a cough. Is been present for a week now. She is not short of breath, it is no worse than if she had a mild cold. But because she has cancer, and has this Klebsiella, she is afraid that any symptoms she has could be lethal. Exam: Temperature 36.6. Heart rate 78. Blood pressure 135/64. Respirations 20. 97% on room air. She is 5 foot 6 inches tall, 70.5 kg Alert oriented elderly lady with a very hesitant speech pattern, seems shy, and slightly anxious. Neck is supple. Lungs are clear to auscultation and percussion Regular rate and rhythm without a murmur Abdomen is soft, nontender, normal bowel sounds. Last bowel movement was May 25. She is eating 100% of her food. Extremities are warm, no clubbing cyanosis or edema Neurologically she is alert, oriented to person place and time, can follow commands, is able to go from supine to sitting to standing and walk to the bathroom and back. Lab: Sodium 142, potassium 3.2, BUN 2013, creatinine 0.9. Glucose today has been 155 fasting, 203 before lunch, 214 before dinner White cell count is 8.2. On admission her white cell count was 17.3. Hemoglobin 8.3. Stable from admission hemoglobin of 8.9. Platelets dropped to day. She is 124. On admission she was 147. Blood cultures from May 27 are negative after 2 days Urine culture is without growth from May 27 Blood culture done through left port May 28 is without any gross Klebsiella blood culture May 26 is resistant to ampicillin, but sensitive to all else including quinolones Assessment/plan 1. Klebsiella pneumonia bacteremia. Source has not been identified. Review of systems shows a negative abdominal exam, urinalysis and culture are negative, and port appears clean, no fluctuance, redness or heat. In trying to estimate where Klebsiella could come from which is usually a GI or source, she could have a bowel source and that she does have pancreatic cancer and the tumor may be having some necrosis. But there is no diarrhea from a GI source. The bacteremia could also been addressed through the port. It is reassuring that the port blood culture is negative after treatment. The initial port blood culture on May 26 was positive. As such, I would recommend continuing to use the port. I had left a message with her oncologist yesterday. Still no return phone call. Plan: We can now de-escalate IV antibiotics and switch her over to oral medication. I will change her to Cipro 500 mg p.o. twice daily. She will need to complete a total of 2 weeks of antibiotic therapy. As such she will need Cipro until June 10. Rocephin will be stopped today. I will monitor for signs and symptoms of recurrent infection. I will focus on fever, tachycardia, white cell count. As long as those remain stable, she can go home tomorrow. 2. Type 2 diabetes mellitus, uncontrolled, on insulin, with hyperglycemia. Now eating 100% of her food. On Lantus 20 units in the evening. I resumed her usual 2 units of lispro before breakfast and lunch. Glucose still high. I will increase Lantus to 22 units tonight. But when she goes home I would have her just resume her usual treatment.
[2022-05-29] MEDS ORDERED: POTASSIUM CHLORIDE 20 MEQ TABLET PO ONE (17:22)
[2022-05-29] MEDS ORDERED: INSULIN GLARGINE-YFGN 300 UNIT/3 ML PEN SUBQ SCH (21:00)
[2022-05-30] MEDS: SODIUM CHLORIDE FLUSH 0.9% 10 ML SYRINGE IVP SCH ×2 (00:12→08:20)
[2022-05-30 05:12] LABS: BASOPHILS # (AUTO) 0.1 10^3/uL (0.0-0.1); BASOPHILS % (AUTO) 0.9 %; EOSINOPHILS # (AUTO) 0.1 10^3/uL (0.0-0.7); HCT - HEMATOCRIT 25.1 % (37.0-47.0); HGB - HEMOGLOBIN 8.1 g/dL (12.0-16.0); LYMPHOCYTES # (AUTO) 1.1 10^3/uL (1.5-3.5); LYMPHOCYTES % (AUTO) 12.6 %; MEAN CORPUSCULAR HEMOGLOBIN 30.2 pg (27.0-31.0); MEAN CORPUSCULAR HGB CONC 32.3 g/dL (32.0-36.0); MEAN CORPUSCULAR VOLUME 93.7 fL (81.0-99.0); MONOCYTES # (AUTO) 0.8 10^3/uL (0.0-1.0); MONOCYTES % (AUTO) 9.1 %; NEUTROPHILS # (AUTO) 6.6 10^3/uL (1.5-6.6); NEUTROPHILS % (AUTO) 74.7 %; PLT - PLATELET COUNT 138 10^3/uL (130-450); RED BLOOD COUNT 2.68 10^6/uL (4.20-5.40); RED CELL DISTRIBUTION WIDTH 13.9 % (12.0-15.0); WHITE BLOOD COUNT 8.8 x10^3/uL (4.8-10.8)
[2022-05-30 05:19] LABS: CALCIUM 8.4 mg/dL (8.5-10.3); CREATININE 0.9 mg/dL (0.4-1.0); POTASSIUM 3.5 mmol/L (3.5-5.0)
[2022-05-30] MEDS: AMYLASE PO SCH ×2 (07:53→11:41)
[2022-05-30] MEDS: LIPASE PO SCH ×2 (07:53→11:41)
[2022-05-30] MEDS: PROTEASE PO SCH ×2 (07:53→11:41)
[2022-05-30] MEDS: INSULIN LISPRO 300 UNIT/3 ML PEN SUBQ SCH ×3 (07:54→11:42)
[2022-05-30] MEDS: POTASSIUM CHLORIDE 20 MEQ/15 ML UDC PO SCH (08:17)
[2022-05-30] MEDS: lisinopriL 5 MG TABLET PO SCH (08:17)
[2022-05-30] MEDS: CHOLECALCIFEROL 25 MCG TABLET PO SCH (08:17)
[2022-05-30] MEDS: METOPROLOL TARTRATE 25 MG TABLET PO SCH (08:18)
[2022-05-30] MEDS: FAMOTIDINE 20 MG TABLET PO SCH (08:18)
[2022-05-30] MEDS: CIPROFLOXACIN 250 MG TABLET PO SCH (08:19)
[2022-05-30] MEDS: DICYCLOMINE 10 MG CAPSULE PO SCH (08:19)
[2022-05-30 08:20] VITALS: BP 141/70
[2022-05-30] MEDS: polyethylene glycoL 3350 17 GM PACKET PO SCH (08:20)
--- NOTE | 2022-05-30 11:27 | Discharge Plan ---
Discharge Plan Problem Reviewed?: Yes Disposition: Home, Self Care Condition: Stable Prescriptions: Ciprofloxacin [Cipro] 500 mg PO BID 11 Days #44 tab Diet: Diabetic Activity Restrictions: Activity as Tolerated Shower Restrictions: No Driving Restrictions: No Health Concerns: You have completed 2 cycles of chemotherapy for stage III pancreatic cancer and a third cycle was delayed last week because your white cell counts were too low. You had a stimulatory shot for that and your white cell counts were starting to rebound but then you got sick on May 26 with fever and chills. He went to the emergency room and were evaluated by the emergency room. They spoke to your oncologist. With a white cell count that was normal, fever that was no longer present, they felt that you were safe enough to go home. He went home around 430 or 5 in the afternoon and by late evening that night, one of your blood cultures came back positive for bacteria. As such she had to go back to the emergency room because your blood was growing a bacteria called Klebsiella pneumonia. They were positive in all 4 bottles including the bottles that were drawn from her port. We were never able to find the source of the Klebsiella. Klebsiella is usually from the GI tract or the urinary tract. But your urine was negative, your abdominal exam was negative. The only thing he complained of was some mild chest congestion and a slight cough. We repeated your blood cultures after you started treatment and all your repeat blood cultures including a repeat blood culture from your port was negative. You received 3 days of antibiotic therapy intravenously. We then transition to oral antibiotics. An antibiotic class called quinolones are very effective at treating Klebsiella. We feel that since the repeat blood cultures through the port are negative, you can continue to use the port with your chemotherapy. You will need to finish treatment on June 10. We did try to call your cancer doctor while you were in the hospital to discuss the port access. We did leave our name and number with her biomedical engineering technologist. Plan of Treatment: 1. Please follow-up with your primary care provider, Dr. Schmid, to discuss your diabetes. While you are taking chemotherapy, this really affects your ability to eat normally, maintain good hydration with fluids, and stay on a schedule. I usually stop metformin, sulfonylureas like glyburide, and management patients with insulin only. But this is a decision you need to make with your primary care provider. Please discuss this with Dr. Schmid because I do not want to interfere with the treatment plan you may have with him. 2. You did ask for a sliding scale of short acting insulin before breakfast and lunch. I will provide that to you under separate dictation. 3. The only other change I would make to your medication is to finish the antibiotics. There is again to be 500 mg total twice a day of Cipro. Until June 10. 4. While you are on antibiotics take an [id number] probiotic. 5. Please follow-up with your oncologist to reschedule your next cycle of chemotherapy. Care Goals: To finish treatment for your pancreatic cancer and have a successful treatment Assessment: Patient is alert, oriented. She has a strong advocate in her . Discharge instructions were discussed with both her and her No Smoking: If you smoke, Please STOP! Call for help. Follow-up with: ROGELIO SCHMID MD [Physician No Access] - Akua Montejo MD [Physician No Access] -
--- NOTE | 2022-05-30 11:32 | DISCHARGE SUMMARY ---
Discharge Summary Admit Date: 05/27/22 Discharge Date: 05/30/22 Discharging Provider: Venita Lott MD Primary Care Provider: Kennedy Schmid MD Code Status: Attempt Resuscitation Condition at Discharge: Stable Discharge Disposition: 01 Home, Self Care - DIAGNOSES Discharge Diagnoses with Status of Each Condition: 1. Klebsiella bacteremia 2. Pancreatic cancer, stage III 3. Type 2 diabetes mellitus, uncontrolled with an A1c of 9%, with hyperglyce modesto, on long-term use of insulin 4. History of peptic ulcer disease 5. Asthma without exacerbation 6. Hiatal hernia with dyspepsia - HPI History of Present Illness: She is a 76-year-old female who was diagnosed with pancreatic cancer in February after experiencing uncontrolled diabetes for no reason, and stomach cramping and limb cramping. She is stage III. Her primary care provider is Kennedy Sheth MD and her Oncologist is Dr. Mariely Montejo. She has received 2 cycles of FOLFIRINOX and the 3rd cycle was delayed last week due to neutropenia. She said that she received Neulasta last month, and this last week she received a new drug but does not remember what it was. Because of the chemo she has had nausea, severe abdominal cramping. But the cramping is well taken care of by "my magic blue pill" of dicyclomine. Since February she has waxing and waning right ear and left ear eustachian tube dysfunction. Occasionally she feels tickling in a sore throat. She says that her sinuses get so swollen that her zygomatic arch will disappear. She had nasal surgery 40 years ago. She has a history of asthma and gets inhalers on a regular basis but has not used a single inhaler. Her diabetes has become uncontrolled. She used to take metformin, glipizide, Januvia. With the chemotherapy she has been taken off glipizide and Januvia and is now on Lantus 20 units at night, 2 units before breakfast of short acting, and 2 units of sh ort acting before lunch. She still takes her metformin. She denies any diarrhea with this. On the evening of May 25 she developed shaking chills, wheezing. She associates this with her asthma and she usually controls her wheezing by just "relaxing". But she was not getting any better, and she noted a fever of 100.2 on May 26 so she went to the emergency room. She has a cough productive of white phlegm but it is mild. No one else around her is sick. She was seen in the emergency room yesterday, and temperature was 39.4, heart rate 117. After treatment with Tylenol temperature was 38.3. White cell count was 14.5. Urinalysis was negative for infection. A single view chest x-ray demonstrated a small left pleural effusion without consolidation. The emergency room provider discussed the case with her oncologist. She felt that the white cell count was elevated due to bone marrow stimulant injections and did not feel like she needed to be admitted or put on prophylactic antib iotics. So the patient was sent home at 4:45 PM. Unfortunately blood cultures grew out Klebsiella and the patient was asked to return to the emergency room. This was at 1:30 in the morning. When she returned her temperature is 38.2. Blood pressure 107/57. Respirations 25 she is 98% on room air. With Tylenol and antibiotics temperature came down to 36.8. Complete review of systems has been done and other than the occasional eustachian tube dysfunction, and the new cough with wheezing, there is nothing else positive on review of systems. Patient is being placed on empiric antibiotic therapy and put in inpatient status. Past medical history: 1. Pancreatic Cancer, stage III 2. AVM of the lung with a stent put in place many years ago 3. [id number]. 4. GERD with hiatal hernia. For years she has had hiccups and burps that have gotten worse with her pancreatic cancer diagnosis 5. Peptic ulcer disease found on EGD done prior to chemotherapy. "Polyps were removed from my stomach" and she is H. pylori negative 6. History of colon polyps with "precancer" found 7. Asthma. Never intubated, not on long-term steroids, has never had to use an inhaler yet - CONSULTS | PROCEDURES Procedures: Chest x-ray was without acute cardiopulmonary disease on May 27 May 26 blood cultures from right arm and subclavian port were all positive for Klebsiella pneumonia that was resistant to ampicillin but sensitive to all antibiotics including ceftriaxone, cefepime, and quinolones. May 27 blood cultures done from antecubital fossa were negative May 28 blood culture from subclavian port was negative May 27 urine culture was without gross - HOSPITAL COURSE Hospital Course: Patient had fever only on her admission. For the rest of her stay she was afebrile. While she was tired and weak, she did not have rigors. White cell count was 17.3 and admission and came down to 8.8 by the time of discharge. She was ambulating in her room, comfortable, and feeling much better by the day of discharge. She was looking forward to going home. I explained that she needed to take up to 2 weeks of antibiotic therapy and the rest of her prescription was called into [facility]. We were worried about her port being the source of infection but repeat blood cultures through the port were negative. I did leave a message with her oncologist to give me a call on May 28. miller head assistant wet process said that she would put my message through on her cell phone. Unfortunate was unable to make contact with her. But through the internist medical doctor md the oncologist should know that the patient was in the hospital. Patient is worried about when she is getting get her neck cycle of chemo. At discharge the patient was ambulating in her room. Alert, oriented. No acute distress. was with her. Temperature was 36.5, pulse 96, blood pressure 141/70, respirations 18, 96% on room air. She had a supple neck. Lungs were clear to auscultation and percussion. Regular rate and rhythm. And abdomen soft, nontender, no organomegaly. Normal bowel sounds. She had some mild edema around her ankles that was 1+. Neurologically without any focal deficits, tremors, or ataxia. Greater than 30 minutes was spent coordinating discharge. Instructing on how to use her antibiotics. And to follow-up with her primary care provider about her diabetes. Her A1c was 9% on admission. She may want to increase her insulin before meals or consider increasing her Lantus. I would not recommend continuing to take metformin if her appetite is good to be diminished or she is going to keep on taking chemotherapy. But I encouraged her to please discuss all this with her primary care provider. And then follow-up with oncology about her next chemo cycle This document was made in part using voice recognition software. While efforts are made to proofread this document, sound alike and grammatical errors may occur. - ALLERGIES Allergies/Adverse Reactions: Allergies Allergy/AdvReac Type Severity Reaction Status Date / Time No Known Drug Allergies Allergy Verified 05/27/22 01:16 - MEDICATIONS Home Medications: Ambulatory Orders Medication Instructions Recorded Confirmed Metformin HCl 500 mg PO BID 01/08/14 05/27/22 lisinopriL [Lisinopril] 10 mg PO DAILY 01/08/14 05/27/22 Metoprolol Tartrate 12.5 mg PO BID 04/05/16 05/27/22 Cholecalciferol (Vitamin D3) 1,000 unit PO DAILY 05/27/22 05/27/22 [Vitamin D3] Cyanocobalamin (Vitamin B-12) 1 tab ORAL MOWEFR 05/27/22 05/27/22 [Vitamin B-12 (1000 mcg sublingual)] Dicyclomine HCl 1 tab PO QID 05/27/22 05/27/22 Famotidine [Pepcid] 20 mg PO BID 05/27/22 05/27/22 Insulin Glargine [Lantus Solostar] 20 unit SUBQ HS 05/27/22 05/27/22 Insulin Lispro [Humalog] 2 units SUBQ BID 05/27/22 05/27/22 Lidocaine/Prilocain 2.5% Cream 0.5 gm TOP PRN PRN 05/27/22 05/27/22 [Emla 2.5% Cream] Lipase/Protease/Amylase [B[place] 1 - 2 cap PO 5XD 05/27/22 05/27/22 24,000 Unit Capsule] Ciprofloxacin [Cipro] 500 mg PO BID 11 Days #44 tab 05/30/22 - LABS Result Diagrams: 05/30/22 04:39 05/30/22 04:39
== END 2022-05-30 12:41 | disposition home or self-care (01) | DRG 871 ==
LOC: ED 01:07 → MS2 12:32
PROVIDERS: ADMIT Specialist; ATTEND Specialist
DX: A41.89 Other specified sepsis (principal); J18.9 Pneumonia, unspecified organism; I10 Essential (primary) hypertension; E11.9 Type 2 diabetes mellitus without complications; R78.81 Bacteremia; Q25.72 Congenital pulmonary arteriovenous malformation; C25.9 Malignant neoplasm of pancreas, unspecified; J90 Pleural effusion, not elsewhere classified; B96.1 Klebsiella pneumoniae [K. pneumoniae] as the cause of diseases classified elsewhere; E11.65 Type 2 diabetes mellitus with hyperglycemia; Z79.4 Long term (current) use of insulin; Z79.84 Long term (current) use of oral hypoglycemic drugs; Z87.11 Personal history of peptic ulcer disease; J45.909 Unspecified asthma, uncomplicated; K44.9 Diaphragmatic hernia without obstruction or gangrene; H69.93 Unspecified Eustachian tube disorder, bilateral; K21.9 Gastro-esophageal reflux disease without esophagitis; Z86.010 Personal history of colon polyps; R09.89 Other specified symptoms and signs involving the circulatory and respiratory systems; R05.9 Cough, unspecified
CPT/HCPCS: 36415; 71045; 80048; 80053; 81001; 83036; 83605; 85025; 87040; 87086; 93005; 96365; 96366; 96368; 99284; 99285; A9270; J1815; J3370

== ENCOUNTER 2022-07-19 00:37 | Emergency (ER) | payer MEDICARE ==
[2022-07-19] MEDS ORDERED: DEXTROSE 10% 250 ML IV STA (03:13)
--- NOTE | 2022-07-19 03:13 | ED Physician Documentation ---
History of Present Illness - Stated complaint Stated Complaint: BLOOD SUGAR - Chief complaint Chief Complaint: Neuro - History obtained from History obtained from: Patient, Family (spouse (in ED at bedside)) - Additonal information Additional information: HPI from patient and spouse. Spouse says he "gave the right dose but the wrong type" (per patient's spouse) of insulin tonight. He says he hannah up and injected 26 units of insulin to patient tonight at approximately 11 PM, but immediately realized he had given humalog whereas he meant to give 26 units of lantus per patient's regimen. Patient takes TID humalog according to a sliding scale and lantus QHS. 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 HEENT: Tonsil/Adenoidectomy - Present Medications Home Medications: Ambulatory Orders Medication Instructions Recorded Confirmed Metformin HCl 500 mg PO BID 01/08/14 05/27/22 lisinopriL [Lisinopril] 10 mg PO DAILY 01/08/14 05/27/22 Metoprolol Tartrate 12.5 mg PO BID 04/05/16 05/27/22 Cholecalciferol (Vitamin D3) 1,000 unit PO DAILY 05/27/22 05/27/22 [Vitamin D3] Cyanocobalamin (Vitamin B-12) 1 tab ORAL MOWEFR 05/27/22 05/27/22 [Vitamin B-12 (1000 mcg sublingual)] Dicyclomine HCl 1 tab PO QID 05/27/22 05/27/22 Famotidine [Pepcid] 20 mg PO BID 05/27/22 05/27/22 Insulin Glargine [Lantus Solostar] 20 unit SUBQ HS 05/27/22 05/27/22 Insulin Lispro [Humalog] 2 units SUBQ BID 05/27/22 05/27/22 Lidocaine/Prilocain 2.5% Cream 0.5 gm TOP PRN PRN 05/27/22 05/27/22 [Emla 2.5% Cream] Lipase/Protease/Amylase [[place] 1 - 2 cap PO 5XD 05/27/22 05/27/22 24,000 Unit Capsule] Ciprofloxacin [Cipro] 500 mg PO BID 11 Days #44 tab 05/30/22 - Allergies Allergies/Adverse Reactions: Allergies Allergy/AdvReac Type Severity Reaction Status Date / Time No Known Drug Allergies Allergy Verified 05/27/22 01:16 - Social History Does the pt smoke?: No Smoking Status: Never smoker Does the pt drink ETOH?: Yes Does the pt have substance abuse?: No - Immunizations Immunizations are current?: Yes - POLST Patient has POLST: No PD ED PE NORMAL - Vitals Vital signs reviewed: Yes - General General: Alert and oriented X 3, No acute distress, Well developed/nourished - HEENT HEENT: Moist mucous membranes - Cardiac Cardiac: RRR, No murmur - Respiratory Respiratory: No respiratory distress - Abdomen Abdomen: Soft, Non tender, Non distended - Neuro Neuro: Alert and oriented X 3, Normal speech Eye Opening: Spontaneous Motor: Obeys Commands Verbal: Oriented GCS Score: 15 - Psych Psych: Normal mood, Normal affect Results - Vitals Vitals: Oxygen O2 Source Room air - Labs Labs: Laboratory Tests 07/19/22 07/19/22 07/19/22 01:02 01:39 02:46 POC Whole Bld Glucose 98 103 H 65 L 07/19/22 05:05 POC Whole Bld Glucose 237 H PD Medical Decision Making - ED course Complexity details: reviewed results, re-evaluated patient, considered differential, d/w patient, d/w family ED course: Patient's blood sugars are observed during ED stay with initial reading of 98 on presentation, subsequently trended down to 60s, given pudding and juice PO but subsequently dropped to 48 and thus IV established , given 25 grams dextrose (50 ml of 50% dextrose). Her subsequent blood sugars were 90s, then 100s, and 200s for few readings prior to discharge. No other testing aside from monitoring her blood sugars indicated on this ED visit. She remained asymptomatic throughout ED stay. Departure - Departure Disposition: 01 Home, Self Care Clinical Impression: Hypoglycemia Overdose of insulin Qualifiers: Encounter type: initial encounter Injury intent: accidental or unintentional Qualified Code(s): T38.3X1A - Poisoning by insulin and oral hypoglycemic [antidiabetic] drugs, accidental (unintentional), initial encounter Condition: Good Instructions: ED Diabetes Hypoglycemia Insulin React, ED Overdose Accidental Comments: Your blood sugars were initially towards the low end of normal early in your ED are stay, and dropped to as low as 48; at that point, and IV was placed and you were given dextrose through the IV. Subsequently, your blood sugars have been a little higher than normal (in the upper 100s to 200s range). As we discussed, the blood sugar being a little bit higher than normal for the short-term is certainly safer than the blood sugar being too low, which is an immediate danger. As we discussed, you can resume your normal insulin regimen starting this morning with breakfast according to your sliding scale. Discharge Date/Time: 07/19/22 06:59
[2022-07-19] MEDS ORDERED: DEXTROSE 50% ABBOJECT 25 GM/50 ML SYRINGE IVP STA (03:14)
[2022-07-19] MEDS ORDERED: DEXTROSE 50% ABBOJECT 25 GM/50 ML SYRINGE ONE (03:16)
[2022-07-19 06:59] VITALS: BP 142/68
== END 2022-07-19 06:59 | disposition home or self-care (01) ==
LOC: ED 00:37
DX: E11.649 Type 2 diabetes mellitus with hypoglycemia without coma (principal); T38.3X1A Poisoning by insulin and oral hypoglycemic [antidiabetic] drugs, accidental (unintentional), initial encounter; Z79.4 Long term (current) use of insulin
CPT/HCPCS: 96374; 99284

== ENCOUNTER 2023-10-19 21:55 | Outpatient (CLI) | payer MEDICARE | END 2023-10-19 21:56 | disposition critical access hospital (66) | LOC: EMS 21:55 | DX: R11.2 Nausea with vomiting, unspecified (principal); R10.13 Epigastric pain; R00.0 Tachycardia, unspecified | CPT/HCPCS: A0425; A0427 ==

== ENCOUNTER 2023-10-19 22:20 | Emergency (ER) | payer MEDICARE ==
[2023-10-19 22:49] LABS: BASOPHILS % (AUTO) 0.4 %; EOSINOPHILS # (AUTO) 0.2 10^3/uL (0.0-0.7); EOSINOPHILS % (AUTO) 2.4 %; HCT - HEMATOCRIT 32.8 % (37.0-47.0); HGB - HEMOGLOBIN 10.7 g/dL (12.0-16.0); LYMPHOCYTES # (AUTO) 0.7 10^3/uL (1.5-3.5); LYMPHOCYTES % (AUTO) 8.1 %; MEAN CORPUSCULAR HEMOGLOBIN 28.2 pg (27.0-31.0); MEAN CORPUSCULAR HGB CONC 32.6 g/dL (32.0-36.0); MEAN CORPUSCULAR VOLUME 86.5 fL (81.0-99.0); MEAN PLATELET VOLUME 11.4 fL (7.9-10.8); MONOCYTES # (AUTO) 0.1 10^3/uL (0.0-1.0); MONOCYTES % (AUTO) 1.4 %; NEUTROPHILS # (AUTO) 7.3 10^3/uL (1.5-6.6); NEUTROPHILS % (AUTO) 87.5 %; PLT - PLATELET COUNT 147 10^3/uL (130-450); RED BLOOD COUNT 3.79 10^6/uL (4.20-5.40); RED CELL DISTRIBUTION WIDTH 16.1 % (12.0-15.0); WHITE BLOOD COUNT 8.4 x10^3/uL (4.8-10.8)
[2023-10-19 23:09] LABS: ALBUMIN 3.8 g/dL (3.2-5.5); ALBUMIN/GLOBULIN RATIO 1.5 (1.0-2.2); BILIRUBIN,TOTAL 1.3 mg/dL (0.2-1.0); CALCIUM 9.4 mg/dL (8.5-10.3); CREATININE 1.3 mg/dL (0.6-1.3); POTASSIUM 3.6 mmol/L (3.5-4.5); TOTAL PROTEIN 6.3 g/dL (6.4-8.9)
--- NOTE | 2023-10-19 23:36 | ED Physician Documentation ---
PD HPI NVD - Stated complaint Stated Complaint: NAUSEA/VOMITING - Chief complaint Chief Complaint: Abd Pain - History obtained from History obtained from: Patient - History of Present Illness Timing - onset: Last night Timing - duration: Hours Timing - details: Gradual onset, Still present Associated symptoms: Abdominal pain Contributing factors: Diabetes, Other (Recently started irrinotican) Improved by: Vomiting Similar symptoms before: Diagnosis (side effects of chemo/pancreatic cancer) Recently seen: Other (seen a Rahul Fowler for chemo 3 days ago. Seen yesterday for pump removal from 5FU infusion.) - Additonal information Additional information: Sacha Dillon is a 78-year-old female with a history of pancreatic cancer she has had a stent placed and she is on chemotherapy. They did attempt surgery and found she had a number of other tumors. She is on chemotherapy. She has progressed through 2 separate agents most recently she was on gemcitabine and 3 days ago she started irinotecan. She indicates that she has not had any kind of a problem with diarrhea associated with the irinotecan but she has developed abdominal cramping and vomiting. Today she is not able to keep fluids down and not able to take medications. She has taken a dose of oxycodone with minimal relief. She has not been able to take her famotodine or the bentyl. She has had similar symptoms previously prior to taking the irinotecan. She has not had to take pain medication previously. She did have bowel movement today at about 2pm. Review of Systems Constitutional: denies: Fever Eyes: denies: Decreased vision Ears: denies: Ear pain Nose: reports: Congestion, Other (post nasal drip) Throat: denies: Sore throat Cardiac: denies: Chest pain / pressure, Palpitations Respiratory: denies: Dyspnea, Cough GI: reports: Abdominal Pain, Nausea, Vomiting, Constipation : denies: Dysuria, Frequency Skin: denies: Rash Musculoskeletal: denies: Neck pain, Back pain, Extremity pain Neurologic: denies: Generalized weakness, Focal weakness, Numbness PD PAST MEDICAL HISTORY - Past Medical History Past Medical History: Yes Cardiovascular: Hypertension, Arrhythmia Respiratory: Asthma Neuro: None Endocrine/Autoimmune: Type 2 diabetes GI: GERD, Hiatal hernia : None Psych: None Musculoskeletal: None Derm: None Other Past Medical History: pancreatic CA - Past Surgical History 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 HEENT: Tonsil/Adenoidectomy - Present Medications Home Medications: Ambulatory Orders Medication Instructions Recorded Confirmed Metformin HCl 500 mg PO BID 01/08/14 05/27/22 lisinopriL [Lisinopril] 10 mg PO DAILY 01/08/14 05/27/22 Metoprolol Tartrate 12.5 mg PO BID 04/05/16 05/27/22 Cholecalciferol (Vitamin D3) 1,000 unit PO DAILY 05/27/22 05/27/22 [Vitamin D3] Cyanocobalamin (Vitamin B-12) 1 tab ORAL MOWEFR 05/27/22 05/27/22 [Vitamin B-12 (1000 mcg sublingual)] Dicyclomine HCl 1 tab PO QID 05/27/22 05/27/22 Famotidine [Pepcid] 20 mg PO BID 05/27/22 05/27/22 Insulin Glargine [Lantus Solostar] 20 unit SUBQ HS 05/27/22 05/27/22 Insulin Lispro [Humalog] 2 units SUBQ BID 05/27/22 05/27/22 Lidocaine/Prilocain 2.5% Cream 0.5 gm TOP PRN PRN 05/27/22 05/27/22 [Emla 2.5% Cream] Lipase/Protease/Amylase [B[place] 1 - 2 cap PO 5XD 05/27/22 05/27/22 24,000 Unit Capsule] Ciprofloxacin [Cipro] 500 mg PO BID 11 Days #44 tab 05/30/22 - Allergies Allergies/Adverse Reactions: Allergies Allergy/AdvReac Type Severity Reaction Status Date / Time No Known Drug Allergies Allergy Verified 10/19/23 22:22 - Social History Does the pt smoke?: No Smoking Status: Never smoker Does the pt drink ETOH?: Yes Does the pt have substance abuse?: No - Immunizations Immunizations are current?: Yes - POLST Patient has POLST: No PD ED PE NORMAL - Vitals Vital signs reviewed: Yes (hypertension with wide pulse pressure) - General General: Alert and oriented X 3, Well developed/nourished, Other (Casing Man tone and flattened affect are present consistent with pain.) - HEENT HEENT: Atraumatic, PERRL, EOMI, Other (Dry mucous membranes) - Neck Neck: Supple, no meningeal sign, No bony TTP - Cardiac Cardiac: RRR, No murmur - Respiratory Respiratory: No respiratory distress, Clear bilaterally - Abdomen Abdomen: Normal bowel sounds, Soft, Other (There is some epigastric tenderness to palpation and periodically when the patient has excessive pain the epigastric area is firm this resolves with the resolution of pain. 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, No motor deficit, No sensory deficit, Normal speech Eye Opening: Spontaneous Motor: Obeys Commands Verbal: Oriented GCS Score: 15 - Psych Psych: Other (Mood is anxious the affect belies pain) Results - Vitals Vitals: Vital Signs - 24 hr 10/19/23 10/20/23 22:22 00:15 Temperature 36.7 C Heart Rate 87 74 Respiratory 16 16 Rate Blood Pressure 141/64 H 168/68 H O2 Saturation 98 100 Oxygen O2 Source Room air - Labs Labs: Laboratory Tests 10/19/23 10/19/23 10/20/23 22:34 22:34 00:13 WBC 8.4 RBC 3.79 L Hgb 10.7 L Hct 32.8 L MCV 86.5 MCH 28.2 MCHC 32.6 RDW 16.1 H Plt Count 147 MPV 11.4 H Neut # (Auto) 7.3 H Lymph # (Auto) 0.7 L [place] # (Auto) 0.1 Eos # (Auto) 0.2 Baso # (Auto) 0.0 Absolute Nucleated RBC 0.00 Nucleated RBC % 0.0 Sodium 137 Potassium 3.6 Chloride 102 Carbon Dioxide 26 Anion Gap 9.0 BUN 27 H Creatinine 1.3 Estimated GFR (MDRD) 40 L Glucose 158 H Calcium 9.4 Total Bilirubin 1.3 H AST 17 ALT 14 Alkaline Phosphatase 73 Total Protein 6.3 L Albumin 3.8 Globulin 2.5 Albumin/Globulin Ratio 1.5 Lipase 35 Urine Color YELLOW Urine Clarity CLEAR Urine pH 6.0 Ur Specific [place] 1.020 Urine Protein NEGATIVE Urine Glucose (UA) NEGATIVE Urine Ketones 15 H Urine Occult Blood NEGATIVE Urine Nitrite NEGATIVE Urine Bilirubin NEGATIVE Urine Urobilinogen 0.2 (NORMAL) Ur Leukocyte Esterase NEGATIVE Ur Microscopic Review NOT INDICATED Urine Culture Comments NOT INDICATED Procedures - IVC sono (time) 2350 Bedside IVC sono: IVC measures (cm) (0.92), IVC collapsed c insp (cm) (complete), Dehydration (est 2 liter deficit after one liter already in.) PD Medical Decision Making - ED course Complexity details: reviewed old records, reviewed results, re-evaluated patient, considered differential, d/w patient, d/w family Reviewed Lab Results: We reviewed a complete blood count showing a normal white blood cell count hemoglobin and hematocrit were depressed at 10.7 and 32.8 both of these values are improved from patient's most recent of 1 year ago. Chemistries show elevated BUN at 27 creatinine at 1.3. Electrolytes and liver function appear normal. Glucose is mildly elevated at 158. Urinalysis shows ketones in the urine. My interpretation of these laboratory results are consistent with the level of dehydration found on the patient with her elevation in BUN and correlating with the findings on interrogation of the IVC with POCUS.. Her hemogram suggest adequate neutrophils. ED course: Lacy Dillon is a 78-year-old female undergoing treatment for pancreatic cancer who has recently started irinotecan. She has had symptoms similar to what she is experiencing tonight a number of times previously prior to the and tonight we found that she was significantly dehydrated and provided additional IV fluid. She had enough pain with this that she began taking pain medication and she has not used pain medication in her entire course over the past year and a half. She may begin to require pain medication on a regular basis. I have discussed this with the patient and her potential need for a fentanyl patch. She has an appointment to see her oncologist at 8:30 in the morning at [facility]. Departure - Departure Disposition: 01 Home, Self Care Clinical Impression: Dehydration Vomiting Qualifiers: Vomiting type: unspecified Nausea presence: with nausea Qualified Code(s): R11.2 - Nausea with vomiting, unspecified Abdominal pain Qualifiers: Abdominal location: epigastric Qualified Code(s): R10.13 - Epigastric pain Condition: Stable Instructions: ED Nausea Vomiting, ED Dehydration Follow-Up: ROGELIO LOPEZ MD [Primary Care Provider] - Comments: Sacha, today it looks like you are having excessive pain and vomiting associated with your treatment of pancreatic cancer. We found that you were significantly dehydrated and we have provided IV hydration. In addition we were able to give you some intravenous pain medication, medication for reducing the acid in your stomach and you are able to keep down your Bentyl. These treatments are all palliative in nature and we did not do imaging procedures. My recommendation is that if you continue to have the symptoms in the morning follow-up with your oncologist as planned. If your symptoms are resolved reconsider going downtown. Ask your oncologist about the possibility of having your infusion pump disconnected here, at [place] [facility] [place], following your infusions in the future. Forms: PCP List
[2023-10-20 00:18] LABS: BILIRUBIN,URINE NEGATIVE (NEGATIVE); GLUCOSE, URINE (UA) NEGATIVE (NEGATIVE); KETONES,URINE (UA) 15 mg/dL (NEGATIVE); LEUKOCYTE ESTERASE, URINE NEGATIVE (NEGATIVE); NITRITE,URINE NEGATIVE (NEGATIVE); OCCULT BLOOD,URINE NEGATIVE (NEGATIVE); PROTEIN,URINE NEGATIVE (NEGATIVE); UROBILINOGEN,URINE 0.2 (NORMAL) E.U./dL (NORMAL)
[2023-10-20 00:19] LABS: CLARITY,URINE CLEAR (CLEAR)
[2023-10-20] MEDS: SODIUM CHLORIDE 0.9% 1,000 ML IV STA (00:19)
[2023-10-20 00:37] VITALS: O2SAT 100
[2023-10-20] MEDS: DICYCLOMINE 10 MG CAPSULE PO STA (01:02)
[2023-10-20] MEDS: HYDROmorphone 1 MG/ML CARPUJECT IVP STA (01:02)
[2023-10-20] MEDS: PANTOPRAZOLE 40 MG VIAL IVP STA (01:26)
[2023-10-20 02:28] VITALS: BP 145/67
== END 2023-10-20 02:26 | disposition home or self-care (01) ==
LOC: EDBD → ED 22:20
DX: E86.0 Dehydration (principal); R11.2 Nausea with vomiting, unspecified; R10.13 Epigastric pain; C25.9 Malignant neoplasm of pancreas, unspecified; Z79.899 Other long term (current) drug therapy
CPT/HCPCS: 36415; 80053; 81003; 83690; 85025; 96361; 96374; 96375; 99284; A9270; J1170; P9612; 51701; 81001; 87086

== ENCOUNTER 2023-11-28 16:03 | Emergency (ER) | payer MEDICARE ==
--- NOTE | 2023-11-28 16:25 | ED Physician Documentation ---
PD HPI ABD PAIN - Stated complaint Stated Complaint: CHEST/ABD PX - Chief complaint Chief Complaint: Abd Pain - History obtained from History obtained from: Patient - Additional information Additional information: This is a 78-year-old woman who has metastatic pancreatic cancer on FOLFIRI. She was admitted to [facility] for about 2 weeks in October for dysphagia, abdominal pain and bloating that was found to be multifactorial. She had reflux esophagitis and/or tumor invasion of the duodenum and pancreatic enzyme insufficiency which is being treated medically. She presents here with pain, chest, both flanks, abdomen, up into the jaw. It has been going on for quite some time and this is the same pain she was evaluated for at the [facility]. That said in the short-term it has been much worse despite twice daily morphine and as needed oxycodone. She will toes takes gabapentin at night. She is basically here for pain management stating the pain is out of control. She is also having a lot of trouble swallowing but that is not necessarily new. She denies fevers. She is eating and drinking albeit not well. 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 HEENT: Tonsil/Adenoidectomy - Present Medications Home Medications: Ambulatory Orders Medication Instructions Recorded Confirmed Metformin HCl 500 mg PO BID 01/08/14 05/27/22 lisinopriL [Lisinopril] 10 mg PO DAILY 01/08/14 05/27/22 Metoprolol Tartrate 12.5 mg PO BID 04/05/16 05/27/22 Cholecalciferol (Vitamin D3) 1,000 unit PO DAILY 05/27/22 05/27/22 [Vitamin D3] Cyanocobalamin (Vitamin B-12) 1 tab ORAL MOWEFR 05/27/22 05/27/22 [Vitamin B-12 (1000 mcg sublingual)] Dicyclomine HCl 1 tab PO QID 05/27/22 05/27/22 Famotidine [Pepcid] 20 mg PO BID 05/27/22 05/27/22 Insulin Glargine [Lantus Solostar] 20 unit SUBQ HS 05/27/22 05/27/22 Insulin Lispro [Humalog] 2 units SUBQ BID 05/27/22 05/27/22 Lidocaine/Prilocain 2.5% Cream 0.5 gm TOP PRN PRN 05/27/22 05/27/22 [Emla 2.5% Cream] Lipase/Protease/Amylase [Bang Suero 1 - 2 cap PO 5XD 05/27/22 05/27/22 24,000 Unit Capsule] Ciprofloxacin [Cipro] 500 mg PO BID 11 Days #44 tab 05/30/22 - Allergies Allergies/Adverse Reactions: Allergies Allergy/AdvReac Type Severity Reaction Status Date / Time Unable to Assess Allergy Verified 11/28/23 16:22 - Social History Does the pt smoke?: No Smoking Status: Never smoker Does the pt drink ETOH?: Yes Does the pt have substance abuse?: No - Immunizations Immunizations are current?: Yes - POLST Patient has POLST: No PD ED PE NORMAL - Vitals Vital signs reviewed: Yes - General General: Alert and oriented X 3, Other (She appears chronically but not acutely ill with alopecia and borderline resting tachycardia.) - HEENT HEENT: PERRL, EOMI - Neck Neck: Supple, no meningeal sign, No bony TTP - Cardiac Cardiac: RRR, No murmur, Other (There is a PowerPort in place in the upper chest wall which is accessed with chemotherapy running.) - Respiratory Respiratory: No respiratory distress, Clear bilaterally - Abdomen Abdomen: Normal bowel sounds, Soft, Non tender - Back Back: No CVA TTP, No spinal TTP - Derm Derm: Normal color, Warm and dry - Extremities Extremities: No edema, No calf tenderness / cord - Neuro Neuro: Alert and oriented X 3, No motor deficit, No sensory deficit, Normal speech Eye Opening: Spontaneous Motor: Obeys Commands Verbal: Oriented GCS Score: 15 - Psych Psych: Normal mood, Normal affect Results - Vitals Vitals: Vital Signs - 24 hr 11/28/23 11/28/23 16:17 16:54 Temperature 36.4 C L Heart Rate 99 88 Respiratory 18 15 Rate Blood Pressure 153/85 H 145/71 H O2 Saturation 97 88 L Oxygen O2 Source Room air - EKG (time done) 1623 EKG releavant findings:: EKG personally interpreted by author of this note. Relevant findings are: Rate: Rate (enter#) (92) Rhythm: NSR, LAE [place]: Normal QRS: Low voltage Ischemia: Normal ST segments. No: ST elevation c/w ischemia, ST depression - Labs Labs: Laboratory Tests 11/28/23 11/28/23 15:46 15:46 WBC 1.1 L* RBC 3.26 L Hgb 9.2 L Hct 29.8 L MCV 91.4 MCH 28.2 MCHC 30.9 L RDW 16.4 H Plt Count 270 MPV 9.8 Manual Slide Review Indicated Sodium 137 Potassium 3.5 Chloride 102 Carbon Dioxide 29 Anion Gap 6.0 BUN 23 H Creatinine 1.1 Estimated GFR (MDRD) 48 L Glucose 260 H Calcium 8.5 Total Bilirubin 0.6 AST 21 ALT 15 Alkaline Phosphatase 64 Total Protein 5.4 L Albumin 3.3 Globulin 2.1 Albumin/Globulin Ratio 1.6 Lipase < 10 L PD Medical Decision Making - ED course ED course: She presents for pain management. University felt that this was a multifactorial pain due to reflux esophagitis, tumor invasion of the duodenum and pancreatic enzyme insufficiency. The same pain she was worked up for but is now out of control. She has a PowerPort, but we cannot utilize it right now as it is accessed with chemotherapy running. As such a peripheral IV was placed for labs and IV Dilaudid and Toradol. Discharge summary from the [facility] dated November 01 of this year was reviewed after initial evaluation. She was medicated here with a small dose of Toradol and 2 mg of Dilaudid. After which she was appearing much more comfortable and said her pain was a 2. We reviewed her labs together, she has low white count, low ANC, and anemia, all of which probably are expected given the chemotherapy. Her blood sugar is up and she is on steroids which is likely causative. She will actually start taking Zarxio injections tomorrow. She was offered consultation with [facility] to see about admission for pain management but she is feeling much better and wants to go home. Departure - Departure Disposition: 01 Home, Self Care Clinical Impression: Abdominal pain Condition: Good Record reviewed to determine appropriate education?: Yes Comments: You were seen today for uncontrolled multifactorial cancer pain. And you received a dose of Dilaudid and Toradol with significant improvement. You should take your Zarxio starting tomorrow as scheduled. And start taking your morphine regularly twice a day with the as needed oxycodone on top of that. Call your doctor to arrange a follow-up appointment, make the next available appointment. In the interim, return anytime if worse or if new symptoms develop. Forms: PCP List
[2023-11-28] MEDS: KETOROLAC 15 MG/ML VIAL IVP STA (16:38)
[2023-11-28] MEDS: HYDROmorphone 2 MG/ML VIAL IVP STA (16:38)
[2023-11-28 16:55] LABS: BASOPHILS % (AUTO) 1.8 %; EOSINOPHILS % (AUTO) 2.7 %; HCT - HEMATOCRIT 29.8 % (37.0-47.0); HGB - HEMOGLOBIN 9.2 g/dL (12.0-16.0); LYMPHOCYTES # (AUTO) 0.3 10^3/uL (1.5-3.5); LYMPHOCYTES % (AUTO) 26.5 %; MEAN CORPUSCULAR HEMOGLOBIN 28.2 pg (27.0-31.0); MEAN CORPUSCULAR HGB CONC 30.9 g/dL (32.0-36.0); MEAN CORPUSCULAR VOLUME 91.4 fL (81.0-99.0); MEAN PLATELET VOLUME 9.8 fL (7.9-10.8); MONOCYTES # (AUTO) 0.2 10^3/uL (0.0-1.0); MONOCYTES % (AUTO) 14.2 %; NEUTROPHILS % (AUTO) 54.8 %; PLT - PLATELET COUNT 270 10^3/uL (130-450); RED BLOOD COUNT 3.26 10^6/uL (4.20-5.40); RED CELL DISTRIBUTION WIDTH 16.4 % (12.0-15.0)
[2023-11-28 17:04] LABS: NEUTROPHILS # (AUTO) 0.6 10^3/uL (1.5-6.6); WHITE BLOOD COUNT 1.1 x10^3/uL (4.8-10.8)
[2023-11-28 17:05] LABS: SLIDE REVIEW? Indicated
[2023-11-28 17:08] LABS: ALBUMIN 3.3 g/dL (3.2-5.5); ALBUMIN/GLOBULIN RATIO 1.6 (1.0-2.2); ALKALINE PHOSPHATASE 64 IU/L (42-121); ALT ALANINE AMINOTRANSFERASE 15 IU/L (10-60); AST ASPARTATE AMINOTRANSFERASE 21 IU/L (10-42); BILIRUBIN,TOTAL 0.6 mg/dL (0.2-1.0); BUN - BLOOD UREA NITROGEN 23 mg/dL (6-20); CALCIUM 8.5 mg/dL (8.5-10.3); CARBON DIOXIDE - CO2 29 mmol/L (21-32); CHLORIDE 102 mmol/L (101-111); CREATININE 1.1 mg/dL (0.6-1.3); GFR - MDRD 48 (>89); GLUCOSE 260 mg/dL (74-104); POTASSIUM 3.5 mmol/L (3.5-4.5); SODIUM 137 mmol/L (135-145); TOTAL PROTEIN 5.4 g/dL (6.4-8.9)
[2023-11-28 17:09] LABS: LIPASE < 10 U/L (11-82)
[2023-11-28 17:44] LABS: DIFFERENTIAL COMMENT MANUAL=AUTO DIFF; PLATELET ESTIMATE, MANUAL NORMAL (130-450,000) (NORMAL); PLATELET MORPHOLOGY NORMAL APPEARANCE (NORMAL)
[2023-11-28 17:59] VITALS: BP 114/64; O2SAT 97
== END 2023-11-28 18:01 | disposition home or self-care (01) ==
LOC: ED 16:03
DX: R10.9 Unspecified abdominal pain (principal); R07.9 Chest pain, unspecified; R68.84 Jaw pain; G89.3 Neoplasm related pain (acute) (chronic); R00.0 Tachycardia, unspecified; D72.819 Decreased white blood cell count, unspecified; D64.9 Anemia, unspecified; C25.9 Malignant neoplasm of pancreas, unspecified; C78.4 Secondary malignant neoplasm of small intestine; E11.9 Type 2 diabetes mellitus without complications; Z79.4 Long term (current) use of insulin; Z79.84 Long term (current) use of oral hypoglycemic drugs; Z92.21 Personal history of antineoplastic chemotherapy
CPT/HCPCS: 36415; 80053; 83690; 85025; 93005; 96374; 96375; 99284; J1170

== ENCOUNTER 2023-12-03 18:02 | Emergency (ER) | payer MEDICARE ==
--- NOTE | 2023-12-03 19:17 | ED Physician Documentation ---
History of Present Illness - Stated complaint Stated Complaint: DEHYDRATED - Chief complaint Chief Complaint: Abd Pain - Additonal information Additional information: Patient is a 78-year-old female presenting to the emergency department with history of pancreatic cancer she is currently following up at the [facility] at . She recently finished a dose of chemotherapy last week and was removed from the chemotherapy on the here in the emergency department as she was having too much abdominal cramping pain to travel to . Patient notes persistent diarrhea and nausea vomiting today. She denies any fevers or chills but has had progressive abdominal cramping. She notes her pain is not as severe as it was when she was seen here on the . She did not take any of her Zofran or baclofen today due to her symptoms. She has been taking morphine and oxycodone at home for symptom control. She is on pancreatic enzymes steroids and insulin for pancreatic insufficiency. She notes she has had worsening nausea hiccups and diarrhea that is what is concerning to her today. Her [facility] and they told her to come here for fluids and nausea medications. 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 HEENT: Tonsil/Adenoidectomy - Present Medications Home Medications: Ambulatory Orders Medication Instructions Recorded Confirmed Metformin HCl 500 mg PO BID 01/08/14 05/27/22 lisinopriL [Lisinopril] 10 mg PO DAILY 01/08/14 05/27/22 Metoprolol Tartrate 12.5 mg PO BID 04/05/16 05/27/22 Cholecalciferol (Vitamin D3) 1,000 unit PO DAILY 05/27/22 05/27/22 [Vitamin D3] Cyanocobalamin (Vitamin B-12) 1 tab ORAL MOWEFR 05/27/22 05/27/22 [Vitamin B-12 (1000 mcg sublingual)] Dicyclomine HCl 1 tab PO QID 05/27/22 05/27/22 Famotidine [Pepcid] 20 mg PO BID 05/27/22 05/27/22 Insulin Glargine [Lantus Solostar] 20 unit SUBQ HS 05/27/22 05/27/22 Insulin Lispro [Humalog] 2 units SUBQ BID 05/27/22 05/27/22 Lidocaine/Prilocain 2.5% Cream 0.5 gm TOP PRN PRN 05/27/22 05/27/22 [Emla 2.5% Cream] Lipase/Protease/Amylase [Bang Suero 1 - 2 cap PO 5XD 05/27/22 05/27/22 24,000 Unit Capsule] Ciprofloxacin [Cipro] 500 mg PO BID 11 Days #44 tab 05/30/22 - Allergies Allergies/Adverse Reactions: Allergies Allergy/AdvReac Type Severity Reaction Status Date / Time Unable to Assess Allergy Verified 11/28/23 16:22 - Social History Does the pt smoke?: No Smoking Status: Never smoker Does the pt drink ETOH?: Yes Does the pt have substance abuse?: No - Immunizations Immunizations are current?: Yes - POLST Patient has POLST: No PD ED PE NORMAL - Vitals Vital signs reviewed: Yes - General General: Alert and oriented X 3, Other (Patient appears fatigued but able to answer questions.) - HEENT HEENT: Other (Dry mucous membranes.) - Cardiac Cardiac: Other (Tachycardic on arrival but normal sinus rhythm.) - Respiratory Respiratory: No respiratory distress, Clear bilaterally - Abdomen Abdomen: Other (Active bowel sounds generalized abdominal tenderness nonspecific abdominal tenderness on examination mildly distended abdomen but no rebound or guarding on examination.) - Derm Derm: Other (Patient appears pale on examination no appreciable rash or other discoloration.) - Neuro Neuro: Alert and oriented X 3 Eye Opening: Spontaneous Motor: Obeys Commands Verbal: Oriented GCS Score: 15 Results - Vitals Vitals: Oxygen O2 Source Room air - Labs Labs: Laboratory Tests 12/03/23 12/03/23 19:15 19:15 WBC 1.9 L* RBC 3.38 L Hgb 9.5 L Hct 30.5 L MCV 90.2 MCH 28.1 MCHC 31.1 L RDW 16.3 H Plt Count 143 MPV 10.7 Neut # (Auto) 1.2 L Lymph # (Auto) 0.2 L [place] # (Auto) 0.1 Eos # (Auto) 0.1 Baso # (Auto) 0.0 Absolute Nucleated RBC 0.00 Band Neuts % (Manual) Not Reportable Abnorm Lymph % (Manual) Not Reportable Nucleated RBC % 0.0 Neutrophils # (Manual) Not Reportable Lymphocytes # (Manual) Not Reportable Monocytes # (Manual) Not Reportable Eosinophils # (Manual) Not Reportable Basophils # (Manual) Not Reportable Differential Comment MANUAL=AUTO DIFF Manual Slide Review Indicated Platelet Estimate NORMAL (130-450,000) Platelet Morphology NORMAL APPEARANCE RBC Morph Micro Appear NORMAL APPEARANCE Sodium 135 Potassium 3.4 L Chloride 102 Carbon Dioxide 24 Anion Gap 9.0 BUN 23 H Creatinine 1.2 Estimated GFR (MDRD) 44 L Glucose 172 H Calcium 8.4 L Total Bilirubin 0.8 AST 12 ALT 10 Alkaline Phosphatase 63 Total Protein 5.7 L Albumin 3.2 Globulin 2.5 Albumin/Globulin Ratio 1.3 Lipase < 10 L PD Medical Decision Making - ED course Complexity details: reviewed old records, reviewed results, re-evaluated patient ED course: Patient is a 78 yo female currently undergoing chemo treatment for history of pancreatic cancer. she presents with her who has been helping her at home. She notes repetitive nausea and vomiting and diarrhea going on for the past few weeks. No fevers, chills, or abdominal pain other than generalized cramping with her symptoms. Vitals shows significantly tachycardic in the 120's on arrival, but patient remained normotensvie. Patient port was accessed and she was given fluids here in the ED. Basic labs were obtained given significant nausea, vomiting and diarrhea. Patient's labs appear similar to when she presented a few days ago while receiving active chemotherapy. Her potassium was supplemented here in the ED at 3.4. given stable labs and patient's tachycardia resolved here in the ED. Patient is safe for discharge home. Patient is feeling better after receiving 2 L of fluid here in the ED. She was able to tolerate eating and drinking here in the ED. Patient unable to provide stool sample here in the ED for persistent diarrhea but she was sent home with stool sample to bring back to the ER and to be tested here. patient given strict return precautions. Discussed with patient possible admisision tonight but she feels safe to go home and her understands he can bring her back to the ED with any new or worsening symptoms. Patient will follow-up with her oncologist early next week as scheduled. Strict return precautions given. Departure - Departure Disposition: Home, Self Care Clinical Impression: Dehydration, Nausea and vomiting, Diarrhea Condition: Fair Comments: You were seen here in the emergency department for your persistent nausea vomiting. Your workup here in the emergency department showed signs of dehydration. Your pain and nausea vomiting diarrhea improved here in emergency department however symptoms most likely secondary to chemotherapy treatment secondary to pancreatic cancer. If you do continue to have persistent nausea vomiting diarrhea you should return to the emergency department. Follow-up with your oncologist in the outpatient setting as instructed. Return with any other new or worsening symptoms Forms: PCP List Discharge Date/Time: 12/03/23 23:35
[2023-12-03 19:23] LABS: BASOPHILS % (AUTO) 1.6 %; EOSINOPHILS # (AUTO) 0.1 10^3/uL (0.0-0.7); EOSINOPHILS % (AUTO) 5.3 %; HCT - HEMATOCRIT 30.5 % (37.0-47.0); HGB - HEMOGLOBIN 9.5 g/dL (12.0-16.0); LYMPHOCYTES # (AUTO) 0.2 10^3/uL (1.5-3.5); LYMPHOCYTES % (AUTO) 10.1 %; MEAN CORPUSCULAR HEMOGLOBIN 28.1 pg (27.0-31.0); MEAN CORPUSCULAR HGB CONC 31.1 g/dL (32.0-36.0); MEAN CORPUSCULAR VOLUME 90.2 fL (81.0-99.0); MEAN PLATELET VOLUME 10.7 fL (7.9-10.8); MONOCYTES # (AUTO) 0.1 10^3/uL (0.0-1.0); MONOCYTES % (AUTO) 6.9 %; NEUTROPHILS # (AUTO) 1.2 10^3/uL (1.5-6.6); NEUTROPHILS % (AUTO) 65.5 %; PLT - PLATELET COUNT 143 10^3/uL (130-450); RED BLOOD COUNT 3.38 10^6/uL (4.20-5.40); RED CELL DISTRIBUTION WIDTH 16.3 % (12.0-15.0)
[2023-12-03 19:30] LABS: WHITE BLOOD COUNT 1.9 x10^3/uL (4.8-10.8)
[2023-12-03 19:31] LABS: SLIDE REVIEW? Indicated
[2023-12-03 19:36] LABS: ALBUMIN 3.2 g/dL (3.2-5.5); ALBUMIN/GLOBULIN RATIO 1.3 (1.0-2.2); ALKALINE PHOSPHATASE 63 IU/L (42-121); ALT ALANINE AMINOTRANSFERASE 10 IU/L (10-60); AST ASPARTATE AMINOTRANSFERASE 12 IU/L (10-42); BILIRUBIN,TOTAL 0.8 mg/dL (0.2-1.0); BUN - BLOOD UREA NITROGEN 23 mg/dL (6-20); CALCIUM 8.4 mg/dL (8.5-10.3); CARBON DIOXIDE - CO2 24 mmol/L (21-32); CHLORIDE 102 mmol/L (101-111); CREATININE 1.2 mg/dL (0.6-1.3); GFR - MDRD 44 (>89); GLUCOSE 172 mg/dL (74-104); POTASSIUM 3.4 mmol/L (3.5-4.5); SODIUM 135 mmol/L (135-145); TOTAL PROTEIN 5.7 g/dL (6.4-8.9)
[2023-12-03 19:41] LABS: LIPASE < 10 U/L (11-82)
[2023-12-03] MEDS: LACTATED RINGERS 1,000 ML IV STA ×2 (19:53→21:39)
[2023-12-03 20:10] LABS: DIFFERENTIAL COMMENT MANUAL=AUTO DIFF; PLATELET ESTIMATE, MANUAL NORMAL (130-450,000) (NORMAL); PLATELET MORPHOLOGY NORMAL APPEARANCE (NORMAL); RBC MORPHOLOGY (MULTIPLE) NORMAL APPEARANCE (NORMAL)
[2023-12-03] MEDS: POTASSIUM CHLORIDE 20 MEQ TABLET PO STA (21:13)
[2023-12-03] MEDS: KETOROLAC 15 MG/ML VIAL IVP STA (21:39)
[2023-12-03] MEDS: MORPHINE 2 MG/ML CARPUJECT IVP STA (21:39)
[2023-12-03 23:41] VITALS: BP 124/79; O2SAT 97
== END 2023-12-03 23:35 | disposition home or self-care (01) ==
LOC: ED 18:02
DX: E86.0 Dehydration (principal); R11.2 Nausea with vomiting, unspecified; R19.7 Diarrhea, unspecified; C25.9 Malignant neoplasm of pancreas, unspecified; Z79.899 Other long term (current) drug therapy
CPT/HCPCS: 36415; 80053; 83690; 85025; 96361; 96374; 96375; 99283; 99284; A9270; J7120